=== PATIENT | female | born 1930 | race Caucasian/White ===

== ENCOUNTER 2016-05-09 18:07 | Inpatient (IN) | payer MEDICARE, OTHER ==
[2016-05-09] MEDS ORDERED: NS 0.9% 1000 ML* 1,000 ML IV ONE (20:52)
[2016-05-09 21:45] LABS: Urine Bacteria 1+ (Absent); Urine Bilirubin Negative (Negative); Urine Glucose Negative (Negative); Urine Nitrite Negative (Negative)
--- NOTE | 2016-05-09 21:54 | RAD ---
Indication: Confusion. Single frontal view of the chest performed at 2110 hours was reviewed. Comparison is made with previous exam dated January 15, 2014. No mediastinal shift is noted. Heart is of normal size and configuration. Lung aden appear clear. IMPRESSION: NO ACTIVE CARDIOPULMONARY DISEASE IS NOTED.
[2016-05-09 22:14] LABS: Hematocrit 42 % (35-47); Hemoglobin 13.3 g/dl (12.0-16.0); Mean Corpuscular HGB Conc 32 g/dl (31-36); Mean Corpuscular Hemoglobin 27 pg (27-31); Mean Corpuscular Volume 85 fL (80-97); Mean Platelet Volume 10 um3 (7.4-10.4); Red Blood Count 4.89 10^6/ul (4.0-5.4); Red Cell Distribution Width 15 % (10.5-15); White Blood Count 11.3 10^3/ul (3.5-10.8)
[2016-05-09 22:30] LABS: Albumin 3.4 g/dL (3.2-5.2); BUN/Creatinine Ratio 19.1 (8-20); Calcium 9.2 mg/dL (8.6-10.3); EGFR African American 49.4 (>60); EGFR Non-African American 38.4 (>60); Globulin 3.1 g/dL (2-4); Potassium 4.5 mmol/L (3.5-5.0); Total Bilirubin 1.1 mg/dL (0.2-1.0); Total Protein 6.5 g/dL (6.4-8.9)
[2016-05-09 22:33] LABS: Troponin I 7.27 ng/mL (<0.04)
[2016-05-09] MEDS ORDERED: Aspirin TAB* 325 MG PO ONE (22:36)
--- NOTE | 2016-05-09 22:59 | RAD ---
Indication: Confusion. CT of the brain was performed without IV contrast. Ventricular structures are midline. No midline shift is noted. Central and cortical atrophy is noted. There is no evidence of intracranial mass or hemorrhage. No other high or low density lesions are identified. When compared to previous exam of January 16, 2014 no significant change is noted. Mastoid air cells and paranasal sinuses are otherwise unremarkable. IMPRESSION: No intracranial mass or hemorrhage is noted.
--- NOTE | 2016-05-09 23:11 | ED ---
Edward Zhou Claudia, scribed for Emanuel Matias on 05/09/16 at 2056 . Altered Mental Status - HPI Summary HPI Summary: 85 year old presents to the ED with increased confusion over the last few days. Pt daughter notes that on Saturday she notes that pt was having more confusion than nnml. Today pt left the car after telling her that she would wait in the car for him. Pt went into he store and sat on a stool and was unable to tell her who she was and where she was. Pt daughter notes pt has confusion since CVA 4 years ago but it has worsened in the past few days. Pt daughter notes pt is dehydrated. Pt denies CP, abd pain and fever. Level 5 caveat- AMS - History Of Current Complaint Chief Complaint: EDAltMentalStatus Stated Complaint: POSSIBLE UTI Time Seen by Provider: 05/09/16 20:36 Hx Obtained From: Patient Hx From Patient Unobtainable Due To: Altered Mental Status Timing: Constant, Lasting Days Character: Confusion Associated Signs And Symptoms: Negative: Fever - Allergies/Home Medications Allergies/Adverse Reactions: Allergies Allergy/AdvReac Type Severity Reaction Status Date / Time Bupropion [From Wellbutrin] Allergy Unknown Unknown Verified 01/15/14 19:41 Reaction Details Cholestyramine Allergy Unknown Unknown Verified 01/15/14 19:41 [From Questran] Reaction Details Ticlopidine [From Ticlid] Allergy Rash Verified 01/15/14 19:41 Codeine AdvReac Mild GI Upset Verified 01/15/14 19:41 PMH/Surg Hx/FS Hx/Imm Hx Previously Healthy: Yes Endocrine/Hematology History: Denies: Hx Diabetes Cardiovascular History: Denies: Hx Congestive Heart Failure, Hx Hypertension, Hx Pacemaker/ICD Respiratory History: Denies: Hx Asthma History: Denies: Hx Renal Disease Sensory History: Reports: Hx Contacts or Glasses, Hx Vision Problem - left eye blurry Denies: Hx Cataracts, Hx Deafness, Hx Hearing Aid, Hx Hearing Problem, Other Sensory Impairments Opthamlomology History: Reports: Hx Contacts or Glasses, Hx Vision Problem - left eye blurry Denies: Hx Cataracts, Other Sensory Impairments Psychiatric History: Reports: Hx Anxiety, Hx Depression Denies: Hx Panic Disorder - Cancer History Cancer Type, Location and Year: Family history - Surgical History Surgery Procedure, Year, and Place: CARPAL TUNNEL, APPY, BILAT CORNEAL TRANSPLANTS Hx Anesthesia Reactions: No - Immunization History Date of Tetanus Vaccine: Unk Date of Influenza Vaccine: None Infectious Disease History: No Infectious Disease History: Denies: Hx Clostridium Difficile, Hx Hepatitis, Hx Human Immunodeficiency Virus (HIV), Traveled Outside the [place] in Last 30 Days - Family History Known Family History: Negative: Hypertension, Diabetes - Social History Occupation: Retired Lives: With Family Alcohol Use: None Substance Use Type: Reports: None Smoking Status (MU): Former Smoker Review of Systems - ROS Summary Review of Systems Summary: Level 5 caveat AMS Negative: Fever Eyes: Negative ENT: Negative Cardiovascular: Negative Negative: Chest Pain Respiratory: Negative Gastrointestinal: Negative Negative: Abdominal Pain Genitourinary: Negative Musculoskeletal: Negative Skin: Negative Neurological: Other - confused Psychological: Normal All Other Systems Reviewed And Are Negative: Yes Physical Exam - Summary Physical Exam Summary: Level 5 caveat AMS Triage Information Reviewed: Yes Vital Signs On Initial Exam: Initial Vitals Temp Pulse Resp BP Pulse Ox 96.9 F 101 16 152/96 97 05/09/16 18:10 05/09/16 18:10 05/09/16 18:10 05/09/16 18:10 05/09/16 18:10 Vital Signs Reviewed: Yes Appearance: Positive: Well-Appearing, No Pain Distress Skin: Positive: Warm, Skin Color Reflects Adequate Perfusion, Dry Head/Face: Positive: Normal Head/Face Inspection Eyes: Positive: EOMI, ADOLFO ENT: Positive: Normal ENT inspection Neck: Positive: Supple, Nontender Respiratory/Lung Sounds: Positive: Clear to Auscultation, Breath Sounds Present Cardiovascular: Positive: RRR, Pulses are Symmetrical in both Upper and Lower Extremities Abdomen Description: Positive: Nontender, Soft Musculoskeletal: Positive: Normal, Strength/ROM Intact Neurological: Positive: Other - confused Diagnostics - Vital Signs Vital Signs Temp Pulse Resp BP Pulse Ox 05/09/16 19:20 97.5 F 99 18 133/74 100 05/09/16 18:10 96.9 F 101 16 152/96 97 - Laboratory Result Diagrams: 05/09/16 22:00 05/09/16 22:00 Lab Statement: Any lab studies that have been ordered have been reviewed, and results considered in the medical decision making process. - Radiology CXR Xray Interpretation: No Acute Changes - NO ACTIVE CARDIOPULMONARY DISEASE Radiology Interpretation Completed By: Radiologist - CT BRAIN CT CT Interpretation: No Acute Changes - NO INTRACRANIAL MASS OR HEMMORHAGE IS NOTED CT Interpretation Completed By: Radiologist - EKG 22:06 Cardiac Rate: NL EKG Rhythm: Sinus Rhythm - 89 beats/min EKG Interpretation: with ST T changes Altered Mental Statu Course/Dx - Course Assessment/Plan: AFTER CXR EKG CT BRAIN AND TROPONIN OF 7.0 PT WILL BE ADMITTED TO [facility]. - Diagnoses Discharge Diagnoses: Non-STEMI (non-ST elevated myocardial infarction) - Provider Notifications Discussed Care Of Patient With: DR. GONZALES WILL ADMIT TO [facility]. 23:07 Discharge - Discharge Plan Condition: Stable Disposition: ADMITTED TO [facility] Referrals: Bhavani Barahona MD [Primary Care Provider] - The documentation as recorded by the Edward garcia Claudia accurately reflects the service I personally performed and the decisions made by Florencio velez Emmanuel.
[2016-05-10] MEDS ORDERED: NS 0.9% 1000 ML* 1,000 ML IV SCH (00:30)
[2016-05-10] MEDS ORDERED: Heparin DRIP 25,000 UNITS(*) 25,000 UNITS/500 ML BAG IV SCH (00:30)
[2016-05-10] MEDS ORDERED: Haloperidol INJ IV/IM* 5 MG/ML AMP IV SLOW PU PRN (00:35)
[2016-05-10] MEDS ORDERED: Haloperidol INJ IV/IM* 5 MG/ML AMP ONE (00:41)
[2016-05-10] MEDS ORDERED: Heparin VIAL(*) 5000 UNITS/ML VIAL (FIVE THOUSAND) IV SCH (01:00)
[2016-05-10] MEDS: cefTRIAXone VIAL(*) 1,000 MG in NS 0.9% 50 ML* 50 ML IVPB SCH (02:45)
[2016-05-10] MEDS ORDERED: Dextrose 50% Syringe 50 ML* 25 GM/50 ML SYRINGE IV PUSH PRN (03:12)
--- NOTE | 2016-05-10 05:12 | HP ---
HISTORY AND PHYSICAL: DATE OF ADMISSION: 05/10/16 PRIMARY CARE PHYSICIAN: Dr. Barahona. CHIEF COMPLAINT: Confusion. HISTORY OF PRESENT ILLNESS: The patient is an 85-year-old woman, who was out with her earlier in the day, running errands. Her got out of the car and left his in there while he went into [employer]. However, while he was in there, she got out of the car, went into the store and had no idea where she was. She was quite confused. Her found her, and with the help of the store employees got her back into the car, brought her home. His daughter called the home and found out about this and went home to see the mother. He said she was just completely confused, did not know where she was. They were concerned it was just dehydration because she only drinks black coffee with sugar, not really any water. They brought her into the hospital for further evaluation and the workup showed that she had an elevated troponin. It also appears that she may have urinary tract infection, which is not unusual for the patient. PAST MEDICAL HISTORY: She has a past medical history significant for depression, TIA, hypertension, dyslipidemia, tardive dyskinesia, cerebrovascular accident, peripheral vascular disease, carotid stenosis. PAST SURGICAL HISTORY: Significant for carpal tunnel syndrome. ALLERGIES: BUPROPION, question TICLOPIDINE AND CODEINE; and LORAZEPAM makes her quite anxious. CURRENT MEDICATIONS: 1. Metformin 500 mg daily. 2. Plavix 75 mg daily. 3. Citalopram 20 mg in the evening. 4. Atorvastatin 80 mg in the evening. 5. Aspirin 81 mg daily. FAMILY HISTORY: Reviewed and noncontributory. SOCIAL HISTORY: Quit tobacco 30 years ago. No alcohol or recreational drug use. She is retired. She works for [employer]. Her daughter , Lavonne King, , is her healthcare proxy. REVIEW OF SYSTEMS: Unable to really complete with the patient because of her confusion. PHYSICAL EXAMINATION GENERAL: An elderly woman, lying in bed, in no acute distress. VITAL SIGNS: Temperature 98.5 degrees, heart rate 82 beats per minute, respiratory rate 18 breaths per minute, pulse ox 95%, blood pressure 130/63. HEENT: Normocephalic and atraumatic. Pupils are equal, round, and reactive to light. Moist mucous membranes. NECK: Supple. No JVD, bruits, palpable thyroid or lymphadenopathy. CHEST: Clear to auscultation and percussion bilaterally. CARDIOVASCULAR: S1, S2 appreciated. ABDOMEN: Positive bowel sounds in all 4 quadrants. Soft, nontender and nondistended. EXTREMITIES: No cyanosis or clubbing. +2 peripheral pulses bilaterally. NEUROLOGIC: She is alert and oriented x1. Moves all extremities. SKIN: No rashes or abnormalities. LABORATORY DATA: White count 11.3, hemoglobin 13.3, hematocrit 42, platelets 317. Sodium 136, potassium 4.5, chloride 102, CO2 of 27, BUN 25, creatinine 1.31 , glucose 176. First troponin was 7.27. INR is 0.93. Urinalysis has +1 leukocyte esterase, +2 wbc's, +3 rbc's, squamous epithelial cells are present. Her brain CT was interpreted by Radiology as no intracranial mass or hemorrhages noted. Her chest x-ray was interpreted by Radiology as no active cardiopulmonary disease noted. Her EKG shows normal sinus rhythm at 90 beats per minute, left axis deviation, Q in lead III, left anterior hemiblock, nonspecific ST-T wave changes. ASSESSMENT AND PLAN: 1. Elevated troponin. The patient likely has non-STEMI, but she is completely asymptomatic. It could be the cause of her confusion. We will admit her to telemetry, start heparin drip, continue her other medications and get Cardiology to see her in the morning, and make her n.p.o. 2. Possible positive urinalysis. She could also have a urinary tract infection. We will start her on Rocephin 1 g IV q. day. 3. Altered mental status. Likely secondary to the traumatic non-STEMI or urinary tract infection. I expect this to clear once she starts to feel better from both. 4. Hypertension. Blood pressure is adequately controlled. Continue current regimen. 5. Hyperlipidemia. Continue Lipitor. 6. Diabetes mellitus. She is on metformin, which is new or at least we were unaware of it. I will hold this and place her on fingerstick with sliding scale insulin. 7. FEN. N.p.o., awaiting likely intervention tomorrow. 8. DVT prophylaxis. She is on heparin drip. 9. The patient is a full code. TIME SPENT: Over 80 minutes were spent on this H and P, more than 45 minutes of which were spent in direct [id number] contact with the patient, in evaluation, physical exam, counseling, and coordination of care. CC: Dr. Barahona* [id number]/[facility] #: [id number] KIMBERLEE
[2016-05-10] MEDS: Insulin LISPRO* 1 UNITS UNIT SUBCUT SCH ×4 (05:58→21:33)
[2016-05-10] MEDS: Aspirin EC Low Dose* 81 MG TAB.EC PO SCH (09:22)
[2016-05-10] MEDS: Clopidogrel TAB* 75 MG PO SCH (09:22)
[2016-05-10 11:12] LABS: Troponin I 5.4 ng/mL (<0.04)
--- NOTE | 2016-05-10 11:32 | ECHO ---
Patient: ADA LUNDBER[facility] Rec#: [id number] : 1930 Date: 05/10/2016 Age: 85y Height: 162.56 cm / 64.0 in Weight: 69.85 kg / 153.9 lbs Sex: F BSA: 1.75 Room#: 435 Admit Date#: 05/10/2016 Type: Inpatient Referring: Guero Harrison MD Reading: Ayan Hanna DO Dye Operator: Rukhsana Cox RDCS CC: Bhavani Barahona MD Transthoracic Echocardiogram Indication: NSTEMI BP: 148/102 HR: 74 Rhythm: NSR Findings History: TIA,CVA,PVD,carotid stenosis,HTN, current EKG =NSRvwith nonspecific T wave abn. Technical Comments: The study quality is fair. Completed at 0905. Left Ventricle: The left ventricular chamber size is decreased. Moderate concentric left ventricular hypertrophy is observed.with prominent basal septal knuckle The left ventricle appears hyperdynamic.with near end systolic cavitary obliteration The estimated ejection fraction is greater than 65%. Abnormal left ventricular diastolic function is observed. Left Atrium: The left atrium is mildly dilated. Right Ventricle: The right ventricular cavity size is normal. The right ventricular global systolic function is normal. Right Atrium: The right atrial cavity size is normal. Aortic Valve: The aortic valve is trileaflet. There is no evidence of aortic regurgitation.The aortic valve appears to open adequately Mitral Valve: Mild mitral annular calcification present. The mitral valve leaflets are mildly thickened. Mild mitral leaflet calcification is visualized. There is mild mitral regurgitation. There is no evidence of mitral stenosis. Tricuspid Valve: The tricuspid valve leaflets are normal. There is trace tricuspid regurgitation. Unable to estimate the right ventricular systolic pressure. There is no tricuspid stenosis. Pulmonic Valve: The pulmonic valve appears normal. There is a trace pulmonic regurgitation. There is no pulmonic stenosis. Pericardium: There is no significant pericardial effusion. Aorta: There is no dilatation of the ascending aorta. The aortic arch is not well visualized. There is mild dilatation of the aortic root. Pulmonary Artery: The main pulmonary artery is not well visualized. Venous: The inferior vena cava appears normal in size. There is a greater than 50% respiratory change in the inferior vena cava dimension. Conclusions The left ventricular chamber size is decreased. Moderate concentric left ventricular hypertrophy is observed with prominent basal septal knuckle The left ventricle is hyperdynamic with near end systolic cavitary obliteration There is likely an end-systolic intracavitary and/or LVOT tract significant gradient that is not well appreciated on this study. The left atrium is mildly dilated. The right ventricular cavity size is normal. The right ventricular global systolic function is normal. Unable to estimate the right ventricular systolic pressure. There is no significant pericardial effusion. Compared to prior study from 01/2014, extra-cardiac structures are not well visualized on this study Measurements Name Value Normal Range RVIDd (AP) 2D 2.1 cm (0.9 - 2.6) RVDdMajor (2D) 2.9 cm (2.2 - 4.4) RAd ISD 4CH 4 cm (3.4 - 4.9) RA (A4C)W 2.2 cm (2.9 - 4.6) IVSd (2D) 1.4 cm (0.6 - 1) LVPWd (2D) 1.4 cm (0.6 - 1) LVIDd (2D) 3.8 cm (3.6 - 5.4) LVIDs (2D) 2.5 cm - LV FS (2D) 35 % (25 - 45) Aortic Annulus 2 cm (1.4 - 2.6) Ao root diameter (2D) 3.6 cm (2.1 - 3.5) Ascending Ao 3 cm (2.1 - 3.4) LA dimension (AP) 2D 4.2 cm (2.3 - 3.8) LAd ISD 4CH 4.5 cm (2.9 - 5.3) LA ISD 4CH W 3.6 cm (2.5 - 4.5) Name Value Normal Range LA ESV SP 4CH (A/L) 35 ml - LA ESV SP 2CH (A/L) 41 ml - LA ESV BP (A/L) 39 ml - LA ESV BP (A/L) index 22.27 ml/m2 - LA ESV SP 4CH (MOD) 33 ml - LA ESV SP 2CH (MOD) 39 ml - Name Value Normal Range MV E-wave Vmax 1.1 m/sec - MV deceleration time 264 msec - MV A-wave Vmax 1.3 m/sec - MV E:A ratio 0.85 ratio - LV septal e' Vmax 0.07 m/sec - LV lateral e' Vmax 0.04 m/sec - LV E:e' septal ratio 15.71 ratio - LV E:e' lateral ratio 27.5 ratio - Name Value Normal Range AV Vmax 1.4 m/sec - AV VTI 40.7 cm - AV peak gradient 8.04 mmHg - AV mean gradient 5.36 mmHg - LVOT Vmax 0.8 m/sec - LVOT VTI 21.5 cm - LVOT peak gradient 2.31 mmHg - LVOT mean gradient 1.36 mmHg - Name Value Normal Range TR Vmax 2.4 m/sec - TR peak gradient 23 mmHg - RAP 3 mmHg - RVSP 26 mmHg - IVC diameter 1.3 cm - Name Value Normal Range PV Vmax 0.6 m/sec - PV peak gradient 1.39 mmHg -
[2016-05-10] MEDS: NS 0.9% 1000 ML* 1,000 ML IV SCH ×2 (14:00→16:04)
--- NOTE | 2016-05-10 14:10 | CONSULT ---
Subjective Date of Service: 05/10/16 Interval History: Provider: Guero Harrison MD/Hospitalist service DATE OF ADMISSION: 05/10/16 PRIMARY CARE PHYSICIAN: Dr. Barahona. CHIEF COMPLAINT: Confusion. Reason for consult: Elevated troponin HISTORY OF PRESENT ILLNESS: The patient is an 85-year-old woman, who was out with her earlier in the day, running errands. Her got out of the car and left his in there while he went into [employer]. However, while he was in there, she got out of the car, went into the store and had no idea where she was. She was very confused. Her found her, and with the help of the store employees got her back into the car, brought her home. She was ultimately admitted to [facility] with dehydration and UTI. Her troponin was elevated as high as 8 with a creatinine of 1.3. EKG showed NSR with non- specific ST segment flattening. TTE showed moderate LVH with very hyperdynamic LVEF with near end systolic cavitary obliteration and no segmental wall motion abnormalities. There was no chest pain, dyspnea, palpitations or syncope. PAST MEDICAL HISTORY: She has a past medical history significant for depression, TIA, hypertension, dyslipidemia, tardive dyskinesia, memory christina cerebrovascular accident, peripheral vascular disease, carotid stenosis. PAST SURGICAL HISTORY: Significant for carpal tunnel syndrome. ALLERGIES: BUPROPION, question TICLOPIDINE AND CODEINE; and LORAZEPAM makes her quite anxious. FAMILY HISTORY: Reviewed and noncontributory. SOCIAL HISTORY: Quit tobacco 30 years ago. No alcohol or recreational drug use. She is retired. She works for [employer]. Her daughter, Lavonne King, , is her healthcare proxy. Medications Active Medications: Aspirin (Aspirin Ec Low Dose*) 81 mg PO DAILY [facility] Last Admin: 05/10/16 09:22 Dose: 81 mg Atorvastatin Calcium (Lipitor*) 80 mg PO QPM JOSE Citalopram Hydrobromide (Celexa Tab*) 20 mg PO QPM JOSE Clopidogrel Bisulfate (Plavix Tab*) 75 mg PO DAILY [facility] Last Admin: 05/10/16 09:22 Dose: 75 mg Dextrose (D50w Syringe 50 Ml*) 12.5 gm IV PUSH .FOR FS < 60 - SS PRN PRN Reason: FS < 60 Haloperidol Lactate (Haldol Inj Iv/Im*) 1 mg IV SLOW PU Q6H PRN PRN Reason: AGITATION Last Admin: 05/10/16 00:43 Dose: 1 mg Ceftriaxone Sodium 1,000 mg/ (Sodium Chloride) 50 mls @ 200 mls/hr IVPB Q24H [facility] Last Admin: 05/10/16 02:45 Dose: 200 mls/hr Sodium Chloride (Ns 0.9% 1000 Ml*) 1,000 mls @ 100 mls/hr IV PER RATE [facility] Last Admin: 05/10/16 14:00 Dose: 100 mls/hr Insulin Human Lispro (Humalog*) 0 units SUBCUT Q6HR JOSE PRN Reason: Protocol Last Admin: 05/10/16 12:25 Dose: Not Given Home Medications: Atorvastatin* [Lipitor*] 80 mg PO QPM 03/07/13 [History Confirmed 05/10/16] Citalopram TAB* [Celexa TAB*] 20 mg PO QPM 03/07/13 [History Confirmed 05/10/16] Aspirin EC Low Dose* [Ecotrin EC Low Dose*] 81 mg PO DAILY 05/10/16 [History Confirmed 05/10/16] Clopidogrel TAB* [Plavix TAB*] 75 mg PO DAILY 05/10/16 [History Confirmed ] metFORMIN* [Glucophage*] 500 mg PO DAILY 05/10/16 [History Confirmed 05/10/16] Review of Systems - Measurements Intake and Output: Intake and Output Last 24 Hours 05/08/16 05/09/16 05/10/16 05/11/16 06:59 06:59 06:59 06:59 Intake Total 77 244 Balance 77 244 Weight 148 lb 9.465 oz Intake: IV Fluids 77 244 ABX - CEFTRIAXONE 60 NS (0.9%) 17 1 hep 243 Oral 0 - Review of Systems Constitutional Symptoms: Positive: Weakness Negative: Weight Gain, Weight Loss, Fever, Night Sweats Dermatology: Negative: Rash, Skin Lesions HEENT: Negative: Change in Hearing, Vertigo Eyes: Negative: Change in Vision, Double Vision Thyroid: Negative: Thyroid Nodule, Cold Intolerance, Heat Intolerance, Constipation, Palpitations, Primary Hypothyroidism, Primary Hyperthyroidism, Weight Loss, Weight Gain Pulmonary: Negative: Cough, Sputum, Hemoptysis, Wheezing, Respiratory Distress, Shortness of Breath, COPD Cardiology: Negative: Chest Pain, Shortness of Breath, Palpitations, Swelling of Ankles, Peripheral Vascular Dis, Edema, Faintness, Syncope, Claudication, Paroxysmal Nocturnal Dyspnea, Orthopnea Gastroenterology: Negative: Abdominal Pain, Nausea, Vomiting, Anorexia, Indigestion, Heartburn , Constipation, Diarrhea Genital - Urinary: Negative: Hematuria, Polyuria, Nocturia Musculoskeletal: Negative: Joint Pain, Joint Stiffness, Arthritis, Osteoporosis, Low Back Pain , Sciatica Endocrinology: Negative: Obesity, Diabetes, Hyperglycemia, Hypoglycemia, Diabetic Foot Ulcers, Polydipsia, Polyuria Hematologic/Lymphatic: Positive: Use of Antiplatelet Drugs Negative: Anemia, Easy Brusing, Hx Leukemia, Use of Anticoagulant Neurology: Positive: Change in Memory, Unexplained Weakness, Hx of Stroke\TIA Negative: Diplopia, Dizziness, Change in Balancing, Change in Coordination, Change in Speech, Change in Sphincter Function, Change in Walking, Numbness\ Paresthesiae, Hx Seizures Psychiatry: Negative: Depressed Mood, Adhedonia, Weight Change, Tearfulness, Unusual Anxiety, Suicidal Ideation, Hypomania, Eating Disorders Allergic/Immunologic: Negative: Hx HIV, Immunocompromise, Swollen Glands Lymph Nodes Review of Systems Statement: All other review of systems negative, unless stated above. Objective Vital Signs: Temp Pulse Resp BP Pulse Ox 97.0 F 92 16 168/99 98 05/10/16 07:46 05/10/16 07:46 05/10/16 07:53 05/10/16 07:46 05/10/16 07:46 Appearance: nad, elderly, frail, pleasant Ears/Nose/Mouth/Throat: Clear Oropharnyx, Mucous Membranes Moist Neck: NL Appearance and Movements; NL JVP Respiratory: Symmetrical Chest Expansion and Respiratory Effort, Clear to Auscultation Cardiovascular: NL Sounds; No Murmurs; No JVD, RRR, No Edema Abdominal: NL Sounds; No Tenderness; No Distention Extremities: No Edema Skin: No Rash or Ulcers Neurological: Alert and Oriented x 3 Laboratory Results: 05/09/16 22:00 05/09/16 22:00 INR (Anticoag Therapy) 0.93 (0.89-1.11) 05/09/16 22:00 APTT > 212.0 seconds (26.0-36.3) H* 05/10/16 10:37 Total Bilirubin 1.10 mg/dL (0.2-1.0) H 05/09/16 22:00 AST 35 U/L (13-39) 05/09/16 22:00 ALT 11 U/L (7-52) 05/09/16 22:00 Alkaline Phosphatase 89 U/L (34-104) 05/09/16 22:00 Total Protein 6.5 g/dL (6.4-8.9) 05/09/16 22:00 Albumin 3.4 g/dL (3.2-5.2) 05/09/16 22:00 Globulin 3.1 g/dL (2-4) 05/09/16 22:00 Albumin/Globulin Ratio 1.1 (1-3) 05/09/16 22:00 05/09/16 05/10/16 05/10/16 22:00 01:30 04:20 Troponin I 7.27 H* 8.82 H* 8.23 H* 05/10/16 10:37 Troponin I 5.40 H* Assessment/Plan I had a long discussion with patient and her daughter Lavonne about troponin elevation and its significance. It is likely demand related myocyte injury from LVH, very hyperdynamic LVEF in the setting of UTI and dehydration. The presence of fixed stable underlying obstructive epicardial CAD cannot be excluded and we discussed this. The confusion has resolved with IV hydration and antibiotics. - Continue aspirin and plavix ([employer] medications) - Continue intensive dose statin - Stop heparin gtt - Give IV hydration and needs beta-samantha to reduce hyperdynamic physiology, start metoprolol 25 mg PO BID (ordered) - We discussed possible stress test as an outpatient to further risk stratify and the risks and benefits of this (they appropriately would like to avoid invasive treatment) and I think in this situation balancing risks/benefits she would do just as well or possibly better with medical treatment. They want to follow up with Dr. Barahona regarding this. Thank you for allowing me to participate in the cardiovascular care of this patient. Please do not hesitate to contact me with questions or concerns.
[2016-05-10] MEDS ORDERED: Haloperidol INJ IV/IM* 5 MG/ML AMP IM PRN (14:59)
[2016-05-10] MEDS ORDERED: Haloperidol TAB* 1 MG PO PRN (14:59)
[2016-05-10] MEDS: Acetaminophen TAB* 325 MG PO PRN (15:27)
[2016-05-10] MEDS: Metoprolol Tartrate TAB* 25 MG PO SCH ×2 (15:27→21:34)
--- NOTE | 2016-05-10 15:46 | PN ---
Subjective Date of Service: 05/10/16 Interval History: HOSPITALIST PROGRESS NOTE Patient seen and examined at bedside. Her only complaint now is headache, otherwise feels much improved. Denies CP or dyspnea. Family History: Unchanged from Admission Social History: Unchanged from Admission Past Medical History: Unchanged from Admission Objective Active Medications: Acetaminophen (Tylenol Tab*) 650 mg PO Q6H PRN PRN Reason: pain/fever Last Admin: 05/10/16 15:27 Dose: 650 mg Aspirin (Aspirin Ec Low Dose*) 81 mg PO DAILY [facility] Last Admin: 05/10/16 09:22 Dose: 81 mg Atorvastatin Calcium (Lipitor*) 80 mg PO QPM JOSE Citalopram Hydrobromide (Celexa Tab*) 20 mg PO QPM [facility] Clopidogrel Bisulfate (Plavix Tab*) 75 mg PO DAILY [facility] Last Admin: 05/10/16 09:22 Dose: 75 mg Dextrose (D50w Syringe 50 Ml*) 12.5 gm IV PUSH .FOR FS < 60 - SS PRN PRN Reason: FS < 60 Haloperidol (Haldol Tab*) 1 mg PO Q6H PRN PRN Reason: AGITATION Haloperidol Lactate (Haldol Inj Iv/Im*) 1 mg IM Q6H PRN PRN Reason: Severe Agitation Ceftriaxone Sodium 1,000 mg/ (Sodium Chloride) 50 mls @ 200 mls/hr IVPB Q24H [facility] Last Admin: 05/10/16 02:45 Dose: 200 mls/hr Sodium Chloride (Ns 0.9% 1000 Ml*) 1,000 mls @ 100 mls/hr IV PER RATE [facility] Last Admin: 05/10/16 14:00 Dose: 100 mls/hr Insulin Human Lispro (Humalog*) 0 units SUBCUT Q6HR [facility] PRN Reason: Protocol Last Admin: 05/10/16 12:25 Dose: Not Given Metoprolol Tartrate (Lopressor Tab*) 25 mg PO BID [facility] Last Admin: 05/10/16 15:27 Dose: 25 mg Vital Signs 05/10/16 05/10/16 07:46 07:53 Temperature 97.0 F Pulse Rate 92 Respiratory 16 16 Rate Blood Pressure 168/99 (mmHg) O2 Sat by Pulse 98 Oximetry Oxygen Devices in Use Now: Nasal Cannula Appearance: Pleasant elderly lady sitting up in bed in NAD. Eyes: No Scleral Icterus Ears/Nose/Mouth/Throat: Mucous Membranes Moist Neck: Trachea Midline Respiratory: Symmetrical Chest Expansion and Respiratory Effort, Clear to Auscultation Cardiovascular: RRR - Normal S1 and S2 Abdominal: NL Sounds; No Tenderness; No Distention Extremities: No Edema Neurological: Alert and Oriented x 3, NL Muscle Strength and Tone Lines/Tubes/Other Access: Clean, Dry and Intact Peripheral IV Nutrition: Taking PO's Result Diagrams: 05/09/16 22:00 05/09/16 22:00 Assess/Plan/Problems-Billing Assessment: Mrs. Neumann is an 85yo F with PMH of depression, TIA/CVA, carotid stenosis, PVD , HTN, hyperlipidemia, who presented to ED with confusion, found to have an UTI and elevated troponin. - Patient Problems (1) UTI (urinary tract infection) Comment: - Urinalysis was abnormal, awaiting urine culture. - Continue Ceftriaxone. (2) Elevated troponin Comment: - Echo showed decreased LV chamber with moderate concentric LVH. - Cardiology consult appreciated - troponin elevation likely secondary to increased demand and very hyperdynamin LV (suggesting dehydration). - Recommended continuation of Aspirin, Plavix, Atorvastatin and add Metoprolol. (3) Dehydration Comment: - Continue IVF. (4) Confusion Comment: - Suspect patient likely has baseline mild dementia and was more confused due to UTI. - Supportive care. (5) Headache Comment: - Likely secondary to caffeine withdrawal. - Will change diet to allow caffeine. (6) DVT prophylaxis Comment: - SQ heparin. (7) Full code status Status and Disposition: Inpatient.
[2016-05-10] MEDS ORDERED: Insulin LISPRO* 1 UNITS UNIT SUBCUT ONE (17:40)
[2016-05-10] MEDS ORDERED: Atorvastatin* 80 MG TAB PO SCH (18:00)
[2016-05-10] MEDS ORDERED: Citalopram TAB* 20 MG PO SCH (18:00)
[2016-05-10 19:33] LABS: Magnesium 1.7 mg/dL (1.9-2.7)
[2016-05-10] MEDS: Heparin VIAL(*) 5000 UNITS/ML VIAL (FIVE THOUSAND) SUBCUT SCH (21:35)
[2016-05-11] MEDS: cefTRIAXone VIAL(*) 1,000 MG in NS 0.9% 50 ML* 50 ML IVPB SCH (02:26)
[2016-05-11] MEDS: Heparin VIAL(*) 5000 UNITS/ML VIAL (FIVE THOUSAND) SUBCUT SCH ×2 (05:36→13:05)
[2016-05-11] MEDS: NS 0.9% 1000 ML* 1,000 ML IV SCH (05:38)
[2016-05-11] MEDS: Insulin LISPRO* 1 UNITS UNIT SUBCUT SCH ×2 (09:33→13:06)
[2016-05-11] MEDS: Clopidogrel TAB* 75 MG PO SCH (09:36)
[2016-05-11] MEDS: Aspirin EC Low Dose* 81 MG TAB.EC PO SCH (09:36)
[2016-05-11] MEDS: Metoprolol Tartrate TAB* 25 MG PO SCH (09:36)
[2016-05-11] MEDS: Acetaminophen TAB* 325 MG PO PRN (09:46)
--- NOTE | 2016-05-11 09:59 | RAD ---
Indication: Non-ST elevation TN. Elevated d-dimer. Assess for pulmonary embolism. Comparison: May 09, 2016 chest radiograph. January 17, 2014 CT. Technique: Following administration of 12.44 mCi xenon-133 by inhalation anterior and posterior ventilation images were obtained. Following the administration of 6.100 mCi of Tc-99m macroaggregated albumin, perfusion images were obtained in multiple projections. Report: The ventilation pattern is uniform with no evidence of air trapping. Accounting for LEFT lung volume loss secondary to cardiomegaly, hiatal hernia, and tortuous descending thoracic aorta based on correlation with January 17, 2014 CT the pulmonary perfusion pattern is unremarkable. Negative for segmental or subsegmental perfusion defects. IMPRESSION: No evidence for pulmonary embolism.
[2016-05-11] MEDS ORDERED: Magnesium Oxide TAB* 400 MG PO ONE (13:36)
[2016-05-11 15:45] VITALS: BP 183/89
--- NOTE | 2016-05-12 01:01 | DS ---
CC: Dr. Barahona DISCHARGE SUMMARY: DATE OF ADMISSION: 05/10/16 DATE OF DISCHARGE: 05/11/16 PRIMARY CARE PROVIDER: Dr. Barahona. DISCHARGE DIAGNOSES: 1. Escherichia coli urinary tract infection, present on admission, not [place] catheter related. 2. Troponin elevation, likely secondary to increased demand and a hyperdynamic left ventricle. 3. Dehydration. 4. Delirium. 5. Hypomagnesemia. SECONDARY DIAGNOSES: 1. Depression. 2. Transient ischemic attack/cerebrovascular accident. 3. Carotid stenosis. 4. Peripheral vascular disease. 5. Hypertension. 6. Hyperlipidemia. 7. Chronic kidney disease, stage 3. 8. Probable dementia. MEDICATION LIST: 1. Metformin 500 mg p.o. daily. 2. Clopidogrel 75 mg p.o. daily. 3. Citalopram 20 mg p.o. daily. 4. Atorvastatin 80 mg p.o. daily. 5. Aspirin 81 mg p.o. daily. New Medications: 1. Cefuroxime 250 mg p.o. b.i.d. for 5 more days. 2. Metoprolol tartrate 25 mg p.o. b.i.d. 3. Magnesium oxide 400 mg p.o. daily. HOSPITAL COURSE: Mrs. Neumann is an 85-year-old lady with the past medical history as stated above that was brought into the emergency room due to confusion. For more details about her presentation, I referred to her history and physical by Dr. Guero Harrison. In the emergency room, the patient was found to have an abnormal urinalysis suggestive of urinary tract infection and she also had an elevated troponin that peaked at 8.8. She had no complaints of chest pain or shortness of breath. She was admitted for further evaluation and workup. Regarding her urinary tract infection, her urine culture grew E. coli 75,000 to 100,000 colonies, multi-sensitive. She was initially treated with ceftriaxone and this was later switched to Ceftin on discharge. Regarding her troponin, the patient had a transthoracic echocardiogram that showed that the last ventricular chamber size is decreased. There is moderate concentric LVH with prominent basal septal knuckle. The left ventricle is hyperdynamic with near and systolic cavitary obliteration. There is likely a main systolic intracavitary and/or LVOT tract significant gradient that was not well appreciated on this study. Unable to estimate the right ventricular systolic pressure. She also had a V/Q scan that showed no evidence for pulmonary embolism. She was seen in consultation by Cardiology (Dr. Ayan Hanna). He had a long discussion with the patient and her daughter at bedside about troponin elevation and what it means. He felt this was likely a demand related myocyte injury from LVH, very hyperdynamic LV function in the setting of UTI and dehydration. The presence of fixed stable underlying obstructive epicardial coronary artery disease cannot be excluded. His recommendation was to continue aspirin, Plavix, statin, start beta-blockers to reduce hyperdynamic physiology. They talked about a possible stress test as an outpatient to further risk stratify and the risks and benefits of it. At this point, they would like to avoid any invasive treatment and she would do just as well or possibly better with medical treatment only. This can be further addressed when the patient follows with Dr. Barahona as outpatient. The patient was quite confused on admission and the impression is that she likely has some degree of dementia. Her daughter describes that for a while the patient has not slept at night and she just wanders through the home. She will spend a night eating bread and butter and picking on different devices around the house. She described one episode that when they woke up, the patient had removed the TV and VCR cable, then put them on the floor on the living room. Her states that sometimes he will wake up when she returns to bed and he does not know what she was doing. They also described some progressive memory issues. I did not perform a mini-mental status at this time as the patient had an active infection, but I believe this will be the next step as outpatient when she follows up with Dr. Barahona. We talked about her safety at home as I am concerned she may get out of the home during the night or have an accident with the stove or other risks. Her family is in agreement with it and they are planning to hire an aide to be with her during the night, so her can rest peacefully without being concerned with what the patient is doing. She already receives aide services during the day and we also made a referral for visiting nurses. I believe the patient was delirious secondary to the urinary tract infection on top of her dementia. She did require some Haldol while in the hospital, but now her mental status appears to be back to her baseline. The patient is medically stable for discharge at this time. She will follow up with Dr. Barahona in the near future. PHYSICAL EXAMINATION: Vital Signs: Temperature 97.4, heart rate is 56, respiratory rate is 18, oxygen saturation 92% on room air, blood pressure is 161 /88. General: The patient is an elderly lady, sitting up in bed, in no acute distress. CVS: Normal S1, S2. Regular rate and rhythm. Chest: Breath sounds present bilaterally with no added sounds. Abdomen: Soft, nontender, nondistended. Bowel sounds are present. Extremities: No edema. Neuro: She is alert, awake, and oriented x3. Able to move all 4 extremities. DIET: Heart healthy diet. ACTIVITY: As tolerated. DISPOSITION: To home. STATUS WHILE IN THE HOSPITAL: Observation. If you need any more information, please feel free to call me at [phone], or please obtain the full medical records. TIME SPENT: Approximately 45 minutes was spent to complete this discharge. [id number]/CPS #: [id number] KIMBERLEE
== END 2016-05-11 16:00 | disposition home or self-care (01) | DRG 690 ==
LOC: ED 18:07 → ICU 05-10 00:16 → MEDTELE 05-10 07:38
PROVIDERS: ADMIT Internal Medicine; ATTEND Internal Medicine
DX: N39.0 Urinary tract infection, site not specified (principal); E83.42 Hypomagnesemia; N18.3 Chronic kidney disease, stage 3 (moderate); F03.90 Unspecified dementia, unspecified severity, without behavioral disturbance, psychotic disturbance, mood disturbance, and anxiety; B96.20 Unspecified Escherichia coli [E. coli] as the cause of diseases classified elsewhere; R74.8 Abnormal levels of other serum enzymes; E86.0 Dehydration; R41.0 Disorientation, unspecified; F32.9 Major depressive disorder, single episode, unspecified; I65.29 Occlusion and stenosis of unspecified carotid artery; I12.9 Hypertensive chronic kidney disease with stage 1 through stage 4 chronic kidney disease, or unspecified chronic kidney disease; E78.5 Hyperlipidemia, unspecified; I73.9 Peripheral vascular disease, unspecified; Z86.73 Personal history of transient ischemic attack (TIA), and cerebral infarction without residual deficits; Z88.6 Allergy status to analgesic agent; Z88.5 Allergy status to narcotic agent; Z88.8 Allergy status to other drugs, medicaments and biological substances; Z79.82 Long term (current) use of aspirin; Z79.02 Long term (current) use of antithrombotics/antiplatelets; Z79.899 Other long term (current) drug therapy; Z87.891 Personal history of nicotine dependence
CPT/HCPCS: 36415; 70450; 71010; 78582; 80053; 81003; 81015; 83735; 84484; 85025; 85379; 85610; 85730; 87077; 87086; 87186; 87641; 93005; 93306; A9270-GY; A9540; A9558; J0696; J1630; J1644

== ENCOUNTER 2016-07-08 20:19 | Emergency (ER) | payer MEDICARE, OTHER ==
[2016-07-08 21:28] LABS: Hematocrit 37 % (35-47); Hemoglobin 11.9 g/dl (12.0-16.0); Mean Corpuscular HGB Conc 33 g/dl (31-36); Mean Corpuscular Hemoglobin 28 pg (27-31); Mean Corpuscular Volume 86 fL (80-97); Mean Platelet Volume 10 um3 (7.4-10.4); Red Blood Count 4.26 10^6/ul (4.0-5.4); Red Cell Distribution Width 15 % (10.5-15); White Blood Count 9.4 10^3/ul (3.5-10.8)
[2016-07-08 21:43] LABS: Albumin 3.5 g/dL (3.2-5.2); BUN/Creatinine Ratio 25.2 (8-20); Calcium 9.1 mg/dL (8.6-10.3); EGFR African American 62.2 (>60); EGFR Non-African American 48.4 (>60); Potassium 3.9 mmol/L (3.5-5.0); Total Bilirubin 0.6 mg/dL (0.2-1.0); Total Protein 6.5 g/dL (6.4-8.9)
[2016-07-08] MEDS ORDERED: Furosemide TAB* 40 MG PO ONE (22:34)
[2016-07-08 23:09] VITALS: BP 150/87
--- NOTE | 2016-07-10 08:30 | ED ---
ILemuel,Rosina, scribed for Andres Perry MD on 07/08/16 at 2233 . Lower Extremity - HPI Summary HPI Summary: This 86 y/o female presents to ED for persistent BLE swelling since 10 days ago. Pt was last seen by doctor on 06/26/2016 and was prescribed hydrochlorothiazide. Negative SOB. Pt has not been diagnosed with dementia, but daughter also reports increased agitation and aggression. Daughter decided to bring pt in when leg pain became worse with palpation and walking. PMHx includes mood disorder, HTN, HLD, DM, migraine, and CVA in 2013. Pt is currently on indapamide, depakote, plavix, and metformin. Pt wears leg compressing socks that goes up to her knees. Primary care involves Dr. Barahona. - History of Current Complaint Chief Complaint: EDExtremityLower Stated Complaint: SWOLLEN LEGS Time Seen by Provider: 07/08/16 20:40 Hx Obtained From: Patient, Family/E/M Engineer - daughter present at bedside, Medical Records Mechanism Of Injury: Unknown Pain Intensity: 0 Pain Scale Used: 0-10 Numeric Timing: Constant Location: Is Discrete @ - BLE Associated Signs And Symptoms: Positive: Swelling. Negative: Fever, Weakness Aggravating Factor(s): Nothing Alleviating Factor(s): Nothing - Allergies/Home Medications Allergies/Adverse Reactions: Allergies Allergy/AdvReac Type Severity Reaction Status Date / Time Bupropion [From Wellbutrin] Allergy Unknown Unknown Verified 07/08/16 20:56 Reaction Details Cholestyramine Allergy Unknown Unknown Verified 07/08/16 20:56 [From Questran] Reaction Details Lorazepam Allergy Agitation Verified 07/08/16 20:56 Ticlopidine [From Ticlid] Allergy Rash Verified 07/08/16 20:56 Codeine AdvReac Mild GI Upset Verified 07/08/16 20:56 PMH/Surg Hx/FS Hx/Imm Hx Endocrine/Hematology History: Reports: Hx Diabetes Cardiovascular History: Reports: Hx Hypercholesterolemia Denies: Hx Congestive Heart Failure, Hx Hypertension, Hx Pacemaker/ICD, Hx Peripheral Vascular Disease Respiratory History: Denies: Hx Asthma History: Denies: Hx Renal Disease Musculoskeletal History: Denies: Hx Arthritis, Hx Osteoporosis Sensory History: Reports: Hx Contacts or Glasses, Hx Vision Problem - left eye blurry Denies: Hx Cataracts, Hx Deafness, Hx Hearing Aid, Hx Hearing Problem, Other Sensory Impairments Opthamlomology History: Reports: Hx Contacts or Glasses, Hx Vision Problem - left eye blurry Denies: Hx Cataracts, Other Sensory Impairments Neurological History: Reports: Hx Transient Ischemic Attacks (TIA) Denies: Hx Seizures Psychiatric History: Reports: Hx Anxiety, Hx Depression Denies: Hx Panic Disorder - Cancer History Cancer Type, Location and Year: Family history - Surgical History Surgery Procedure, Year, and Place: CARPAL TUNNEL, APPY, BILAT CORNEAL TRANSPLANTS Hx Anesthesia Reactions: No - Immunization History Date of Tetanus Vaccine: Unk Date of Influenza Vaccine: None Infectious Disease History: Yes Infectious Disease History: Denies: Hx Clostridium Difficile, Hx Hepatitis, Hx Human Immunodeficiency Virus (HIV), Traveled Outside the [place] in Last 30 Days - Family History Known Family History: Negative: Hypertension, Diabetes - Social History Alcohol Use: None Substance Use Type: Reports: None Smoking Status (MU): Former Smoker Amount Used/How Often: 1ppd Review of Systems Negative: Fever, Chills Negative: Erythema Negative: Sore Throat Negative: Chest Pain Negative: Shortness Of Breath Negative: Abdominal Pain, Vomiting, Nausea Negative: dysuria Positive: Edema - BLE Negative: Numbness All Other Systems Reviewed And Are Negative: Yes Physical Exam - Summary Physical Exam Summary: Constitutional: Well-developed, Well-nourished, Alert. (-) Distressed Skin: Warm, Dry HENT: Eyes: Conjunctiva normal Neck: Musculoskeletal ROM normal neck. (-) JVD, (-) Stridor, (-) Tracheal deviation Cardio: Rhythm regular, rate normal, Heart sounds normal; Intact distal pulses; The pedal pulses are 2+ and symmetric. Radial pulses are 2+ and symmetric. (-) Murmur Pulmonary/Chest wall: Effort normal. (-) Respiratory distress, (-) Wheezes, (-) Rales Abd: Soft. (-) Tenderness, (-) Distension, (-) Guarding, (-) Rebound Musculoskeletal: (+) TRACE Edema Lymph: (-) Cervical adenopathy Neuro: Alert, Oriented x3, Strength normal, Cranial nerves II-XII are grossly intact. (-) Dysmetria, (-) Nystagmus, (-) Ataxia by finger to nose testing, (-) Sensory deficit. Psych: Mood and affect Normal Triage Information Reviewed: Yes Vital Signs On Initial Exam: Initial Vitals Temp Pulse Resp BP Pulse Ox 98.1 F 99 20 126/63 95 07/08/16 20:28 07/08/16 20:28 07/08/16 20:28 07/08/16 20:28 07/08/16 20:28 Vital Signs Reviewed: Yes Diagnostics - Vital Signs Vital Signs Temp Pulse Resp BP Pulse Ox 07/08/16 20:50 98.1 F 99 20 126/63 95 07/08/16 20:28 98.1 F 99 20 126/63 95 - Laboratory Lab Results: Lab Results 07/08/16 07/08/16 07/08/16 Range/Units 21:20 21:20 21:20 WBC 9.4 (3.5-10.8) 10^3/ul RBC 4.26 (4.0-5.4) 10^6/ul Hgb 11.9 L (12.0-16.0) g/dl Hct 37 (35-47) % MCV 86 (80-97) fL MCH 28 (27-31) pg MCHC 33 (31-36) g/dl RDW 15 (10.5-15) % Plt Count 230 (150-450) 10^3/ul MPV 10 (7.4-10.4) um3 Neut % (Auto) 66.9 (38-83) % Lymph % (Auto) 20.4 L (25-47) % [place] % (Auto) 7.9 (1-9) % Eos % (Auto) 3.3 (0-6) % Baso % (Auto) 1.5 (0-2) % Absolute Neuts (auto) 6.3 (1.5-7.7) 10^3/ul Absolute Lymphs (auto) 1.9 (1.0-4.8) 10^3/ul Absolute Monos (auto) 0.7 (0-0.8) 10^3/ul Absolute Eos (auto) 0.3 (0-0.6) 10^3/ul Absolute Basos (auto) 0.1 (0-0.2) 10^3/ul Absolute Nucleated RBC 0 10^3/ul Nucleated RBC % 0 Sodium 138 (133-145) mmol/L Potassium 3.9 (3.5-5.0) mmol/L Chloride 103 (101-111) mmol/L Carbon Dioxide 29 (22-32) mmol/L Anion Gap 6 (2-11) mmol/L BUN 27 H (6-24) mg/dL Creatinine 1.07 H (0.51-0.95) mg/dL Est GFR ( Amer) 62.2 (>60) Est GFR (Non-Af Amer) 48.4 (>60) BUN/Creatinine Ratio 25.2 H (8-20) Glucose 149 H (70-100) mg/dL Calcium 9.1 (8.6-10.3) mg/dL Total Bilirubin 0.60 (0.2-1.0) mg/dL AST 20 (13-39) U/L ALT 13 (7-52) U/L Alkaline Phosphatase 71 (34-104) U/L B-Natriuretic Peptide 49 ( - 100) pg/mL Total Protein 6.5 (6.4-8.9) g/dL Albumin 3.5 (3.2-5.2) g/dL Globulin 3.0 (2-4) g/dL Albumin/Globulin Ratio 1.2 (1-3) Result Diagrams: 07/08/16 21:20 07/08/16 21:20 Lab Statement: Any lab studies that have been ordered have been reviewed, and results considered in the medical decision making process. Lower Extremity Course/Dx - Course Assessment/Plan: This 86 y/o female presents to ED alongside her daughter with persistent BLE edema. Pt was recently seen by her primary and was prescribed hydrochlorothiazide on 06/26/2016. She is currently on indapamide. PMHx includes DM, HTN, HLD, and CVA in 2013. Bloodwork is wnl. Pt is prescription for LASIX prescription, leg compression stocking, f/u with primary care provider. - Diagnoses Provider Diagnoses: Peripheral edema Discharge - Discharge Plan Condition: Stable Disposition: HOME Prescriptions: Furosemide TAB* [Lasix TAB*] 20 mg PO DAILY #7 tab Patient Education Materials: Furosemide (By mouth), Leg Edema (ED) Referrals: Bhavani Barahona MD [Primary Care Provider] - 2 Days Additional Instructions: PLEASE BE SURE TO HAVE YOUR REPEAT BLOOD WORK WITH DR. BARAHONA. RETURN TO THE EMERGENCY DEPARTMENT FOR CHANGING OR WORSENING SYMPTOMS The documentation as recorded by the Lemuel garcia Soohyun accurately reflects the service I personally performed and the decisions made by me, Andres Perry MD.
== END 2016-07-08 23:08 | disposition home or self-care (01) ==
LOC: ED 20:19
DX: R60.0 Localized edema (principal); Z87.891 Personal history of nicotine dependence
CPT/HCPCS: 36415; 80053; 83880; 85025; 99282; A9270-GY

== ENCOUNTER 2018-04-26 16:39 | Inpatient (IN) | payer MEDICARE, OTHER ==
[2018-04-26] MEDS ORDERED: NS 0.9% 1000 ML** 1,000 ML IV ONE (16:42)
--- NOTE | 2018-04-26 16:50 | ED ---
Neurological HPI - HPI Summary HPI Summary: This patient is an 87 year old F brought in by ambulance to [facility] with a chief complaint of sudden onset left sided facial droop since 15:20. The patient rates the pain 0/10 in severity. Symptoms aggravated by nothing. Symptoms alleviated by nothing. Patient reports left sided weakness, confusion, and cognitive difficulty. Patient denies PAPPAS, dizziness, or nausea. Patient has hx dementia but her family notes she has more confused than usual since the onset of symptoms. - History of Current Complaint Stated Complaint: POSS STROKE Hx Obtained From: EMS Onset/Duration: Sudden Onset, Started hours ago - 1.5 hours ago, Still Present Timing: Constant Onset Severity: Moderate Current Severity: Moderate Seizure Severity: Moderate Neurological Deficit Location: Facial - left side, LUE, RLE, LLE Character: Weak - on left side, Confusion Aggravating: Nothing Alleviating: Nothing Associated Signs and Symptoms: Positive: Confusion, Weakness - on left side. Negative: Headache, Dizziness - Additional Pertinent History Primary Care Physician: KIMBERLY - Allergy/Home Medications Allergies/Adverse Reactions: Allergies Allergy/AdvReac Type Severity Reaction Status Date / Time ticlopidine Allergy Intermediate Rash Verified 04/26/18 18:18 lorazepam Allergy Mild Agitation Verified 04/26/18 18:18 bupropion Allergy Unknown Unknown Verified 04/26/18 18:18 Reaction Details cholestyramine Allergy Unknown Unknown Verified 04/26/18 18:18 Reaction Details codeine AdvReac Intermediate GI Upset Verified 04/26/18 18:18 Home Medications: Home Medications prednisoLONE 1% OPHTH.SUSP* [Pred Forte 1%*] 1 drop .SEE ORDER DAILY 04/26/18 [ History Confirmed 04/26/18] PMH/Surg Hx/FS Hx/Imm Hx Endocrine/Hematology History: Reports: Hx Diabetes Cardiovascular History: Reports: Hx Hypercholesterolemia Denies: Hx Congestive Heart Failure, Hx Hypertension, Hx Pacemaker/ICD, Hx Peripheral Vascular Disease Respiratory History: Denies: Hx Asthma History: Denies: Hx Renal Disease Musculoskeletal History: Denies: Hx Arthritis, Hx Osteoporosis Sensory History: Reports: Hx Contacts or Glasses, Hx Vision Problem - left eye blurry Denies: Hx Cataracts, Hx Deafness, Hx Hearing Aid, Hx Hearing Problem, Other Sensory Impairments Opthamlomology History: Reports: Hx Contacts or Glasses, Hx Vision Problem - left eye blurry Denies: Hx Cataracts, Other Sensory Impairments Neurological History: Reports: Hx Dementia, Hx Transient Ischemic Attacks (TIA) Denies: Hx Seizures Psychiatric History: Reports: Hx Anxiety, Hx Depression Denies: Hx Panic Disorder - Cancer History Cancer Type, Location and Year: Family history - Surgical History Surgery Procedure, Year, and Place: CARPAL TUNNEL, APPY, BILAT CORNEAL TRANSPLANTS Hx Anesthesia Reactions: No - Immunization History Date of Tetanus Vaccine: Unk Date of Influenza Vaccine: None Infectious Disease History: Denies: Hx Clostridium Difficile, Hx Hepatitis, Hx Human Immunodeficiency Virus (HIV) - Family History Known Family History: Negative: Hypertension, Diabetes - Social History Alcohol Use: None Substance Use Type: Reports: None Smoking Status (MU): Former Smoker Amount Used/How Often: 1ppd Review of Systems Negative: Fever Negative: Epistaxis Negative: Cough Negative: Nausea Neurological: Negative - negative dizziness, Other - confusion, left sided facial droop Positive: Weakness - left sided weakness. Negative: Headache All Other Systems Reviewed And Are Negative: Yes Physical Exam - Summary Physical Exam Summary: Appearance: The patient is well-nourished in no acute distress and in no acute pain. Skin: The skin is warm and dry and skin color reflects adequate perfusion. HEENT: The head is normocephalic and atraumatic. The pupils are equal and reactive. The conjunctivae are clear and without drainage. Nares are patent and without drainage. Mouth reveals moist mucous membranes and the throat is without erythema and exudate. The external ears are intact. The ear canals are patent and without drainage. The tympanic membranes are intact. Neck: The neck is supple with full range of motion and non-tender. There are no carotid bruits. There is no neck vein distension. Respiratory: Chest is non-tender. Lungs are clear to auscultation and breath sounds are symmetrical and equal. Cardiovascular: Heart is regular rate and rhythm. There is no murmur or rub auscultated. There is no peripheral edema and pulses are symmetrical and equal. Abdomen: The abdomen is soft and non-tender. There are normal bowel sounds heard in all four quadrants and there is no organomegaly palpated. Musculoskeletal: There is no back tenderness noted. Extremities are non-tender with full range of motion. There is good capillary refill. There is no peripheral edema or calf tenderness elicited. Neurological: Patient is alert and oriented to person, place and time. The patient has symmetrical motor strength in all four extremities. Cranial nerves are grossly intact. Deep tendon reflexes are symmetrical and equal in all four extremities. GCS 15 Psychiatric: The patient has an appropriate affect and does not exhibit any anxiety or depression. Triage Information Reviewed: Yes Vital Signs Reviewed: Yes Diagnostics - Laboratory Result Diagrams: 04/26/18 16:58 04/26/18 16:58 Lab Statement: Any lab studies that have been ordered have been reviewed, and results considered in the medical decision making process. - Radiology CXR Radiology Interpretation Completed By: Radiologist Summary of Radiographic Findings: IMPRESSION: LOW LUNG VOLUMES, SMALL RIGHT BASILAR INFILTRATE SUGGESTIVE OF ATELECTASIS. Dr. Roberts has reviewed this report. - CT CT Brain CT Interpretation Completed By: Radiologist Summary of CT Findings: IMPRESSION: 1. NO EVIDENCE FOR GROSS ACUTE INFARCT, MASS EFFECT OR HEMORRHAGE. 2. ATROPHY AND FINDINGS SUGGESTIVE OF MILD TO MODERATE CHRONIC SMALL VESSEL ISCHEMIC. CHANGES. Dr. Roberts has reviewed this report. - EKG 16:56 Cardiac Rate: NL - at 72 bpm EKG Rhythm: Sinus Rhythm Summary of EKG Findings: Sinus rhythm at 72 bpm with left axis deviation NIH Scale - NIH Scale NIH Stroke Scale Comment: unobtainable secondary to dementia and receptive aphasia Course/Dx - Course Course Of Treatment: Ms. Neumann was very difficult evaluation which I believe is secondary partially to her underlying dementia and partially to a probable new aphasia. In any case she had an acute change in her speech and interaction and motor skills at 1520. She was evaluated by the telestroke neurologist who recommended TPA and CTA. She has received her TPA and is awaiting CTA at this time. If CT shows a retrievable clot she will be transferred to an appropriate institution otherwise she'll be admitted here for further evaluation and workup. Several attempts were made to perform an NIH stroke scale breath with the telestroke provider and without. A consistent result was unobtainable. 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 Scribe Documentation Reviewed: Yes Provider Attestation: The documentation as recorded by the scribe, Puja Cardozo accurately reflects the service I personally performed and the decisions made by me, Parveen Roberts MD Status of Scribe Document: Viewed
[2018-04-26 17:09] LABS: ABS Basophils 0.1 10^3/ul (0-0.2); ABS Eosinophils 0.1 10^3/ul (0-0.6); ABS Lymphocytes 1.6 10^3/ul (1.0-4.8); ABS Monocytes 0.5 10^3/ul (0-0.8); ABS Neutrophils 6.9 10^3/ul (1.5-7.7); ABS Nucleated RBC 0 10^3/ul; Eosinophil % 1.1 %; Hematocrit 45 % (35-47); Hemoglobin 14.5 g/dl (12.0-16.0); Lymphocyte % 17.2 %; Mean Corpuscular HGB Conc 33 g/dl (31-36); Mean Corpuscular Hemoglobin 28 pg (27-31); Mean Corpuscular Volume 86 fL (80-97); Mean Platelet Volume 9.7 fL (7.4-10.4); Nucleated Red Blood Cells % 0; Platelet Count 215 10^3/ul (150-450); Red Blood Count 5.21 10^6/ul (4.00-5.40); Red Cell Distribution Width 15 % (10.5-15); White Blood Count 9.2 10^3/ul (3.5-10.8)
[2018-04-26 17:20] LABS: Activated Partial Thrombo Time 38.8 seconds (26.0-36.3); INR 0.9 (0.77-1.02)
[2018-04-26 17:26] LABS: Albumin 3.5 g/dL (3.2-5.2); Albumin/Globulin Ratio 1.3 (1-3); BUN/Creatinine Ratio 16.5 (8-20); Calcium 8.8 mg/dL (8.6-10.3); EGFR African American 65.4 (>60); EGFR Non-African American 54.1 (>60); Globulin 2.7 g/dL (2-4); HDL Cholesterol 42.1 mg/dL; Total Bilirubin 1.1 mg/dL (0.2-1.0); Total Protein 6.2 g/dL (6.4-8.9)
[2018-04-26 17:27] LABS: Troponin I 0.01 ng/mL (<0.04)
[2018-04-26] MEDS ORDERED: Alteplase* 100 MG VIAL ONE (17:34)
[2018-04-26] MEDS ORDERED: ALTEPLASE IV ONE ×2 (17:36)
[2018-04-26] MEDS ORDERED: Iodixanol* (CONTRAST) 320 MG/ML 100 ML SDV IV ONE (18:03)
--- NOTE | 2018-04-26 19:07 | ED ---
Progress - Progress Note Progress Note: This patient was signed out by Dr. Roberts to Dr. Sawant, pending a CTA head/neck. Course/Dx - Course Course Of Treatment: I spoke with Dr. Marshall at [place] about the patient, and he stated that her CTA results do not warrant acute intervention. He says she does not need to be transferred and can be admitted to [facility]. Her CTA findings can be addressed in outpatient care. Diagnosis is pending MRI to confirm or deny a stroke. 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 - Provider Notifications Discussed Care Of Patient With: Precious Celestin Time Discussed With Above Provider: 17:50 Instructed by Provider To: Admit As Inpatient - Critical Care Time Critical Care Time: 30-74 min Discharge - Sign-Out/Discharge Documenting (check all that apply): Patient Departure - admission, Receiving Sign-Out Receiving patient FROM: Parveen Roberts - Discharge Plan Condition: Stable Disposition: ADMITTED TO [facility] Referrals: Bhavani Barahona MD [Primary Care Provider] - - Attestation Statements Document Initiated by Scribe: Yes Documenting Scribe: Cole Andres Provider For Whom Scribe is Documenting (Include Credential): Aníbal Sawant MD Scribe Attestation: ICole, scribed for Aníbal Sawant MD on 04/26/18 at 2152. Status of Scribe Document: Ready
[2018-04-26] MEDS: NS 0.9% 1000 ML** 1,000 ML IV SCH (23:13)
[2018-04-26] MEDS ORDERED: niCARdipine 0.1MG/ML IVPREMIX* 20 MG/200 ML BAG IV ONE (23:32)
[2018-04-26] MEDS ORDERED: niCARdipine 0.1MG/ML IVPREMIX* 20 MG/200 ML BAG IV SCH (23:45)
--- NOTE | 2018-04-27 00:17 | HP ---
CC: Dr. Bhavani Barahona HISTORY AND PHYSICAL: DATE OF ADMISSION: 04/26/18 PRIMARY CARE PROVIDER: Dr. Bhavani Barahona. CHIEF COMPLAINT: Altered mental status. HISTORY OF PRESENT ILLNESS: This is an 87-year-old female with past medical history of hyperlipidemia, who was taking Lipitor as well as Plavix, who now presents to the emergency room because of change in her neurological status. Daughter is at bedside and gives most of the history, patient also has history of dementia. The patient's daughter, Lavonne, is at bedside, who reports to me that the patient used to be taking Plavix; however, this was stopped on Saturday , 04/22/18, secondary to patient having some difficulty with swallowing. This afternoon, the patient was getting ready to go out with the daughter and the daughter found that the patient was not moving and was just staring at the window and the patient was having a hard time moving around, so 911 was called. Over there, the patient was noted to have left facial droop, left upper extremity weakness, and left lower extremity weakness. Upon arrival to the emergency room, e[facility] h[facility] was called. CT of the head was done. CT of the head did not show any acute pathology. Subsequently, the patient was deemed a candidate for tPA by Dr. Roberts in the emergency room and the patient received tPA. Additionally, the patient had a CTA also done in the emergency room, which had showed some occlusion; however, Dr. Marshall at [place], was contacted regarding the CTA results and he recommended that the patient does not warrant any acute intervention and recommended that the patient to be a candidate to be admitted to the [facility]. Subsequently, the hospitalist service was called. Currently, the patient is answering all my questions appropriately, does not seem to have any weakness. Per the daughter and patient, there were no symptoms of fevers, no chills, no chest pain, no shortness of breath, no abdominal pain, no nausea, no vomiting, no rashes or lesions, no sore throat, no change in her vision or hearing. Otherwise the review of systems was done and it was negative. PAST MEDICAL HISTORY: 1. Dementia. 2. Hyperlipidemia. PAST SURGICAL HISTORY: Replacement of cornea. MEDICATIONS: Home medications include: 1. Atorvastatin 80 mg daily. 2. Plavix 75 mg daily. Of note, the last dose of Plavix was on 04/22/18. 3. Prednisone eye drops daily. ALLERGIES: Include TICLOPIDINE causes rash; LORAZEPAM causes agitation; BUPROPION, CHOLESTYRAMINE, and CODEINE, which causes GI upset. FAMILY HISTORY: Mother: Cancer. SOCIAL HISTORY: The patient lives at home with daughter, former smoker, no alcohol use. PHYSICAL EXAMINATION GENERAL: This is an elderly female, lying in an ER stretcher, in no acute distress. VITAL SIGNS: Currently blood pressure is 181/85, heart rate of 75, respiratory rate of 22, saturation 97% on nasal cannula, temperature of 98.5 degrees Fahrenheit. HEENT: There is no nystagmus. Pupils are round and reactive. There is no oropharyngeal erythema. LUNGS: There is no tachypnea. No use of accessory muscles. HEART: No chest wall tenderness. Regular rate and rhythm. Soft systolic murmur, best heard at the apex. ABDOMEN: Bowel sounds are normoactive in all 4 quadrants. Abdomen is soft, nontender, nondistended. NEUROLOGIC: The patient is alert and oriented x2, oriented to person and place. She knows the year; however, does not know the month. Does not know the president. Her tongue is midline. There is no facial droop. Symmetric smile. She follows all my commands appropriately. There is no dysmetria. Motor is 5/ 5 all 4 extremities. DTRs are 2+ bilaterally. Of note, I discussed with the daughter at bedside and she thinks that the patient has made marked improvement in neurological status. The patient is also able to identify common objects such as a pen, clock, and glasses. There is no aphasia, no dysarthria. There is no slurred speech. There are no rashes or lesions. DIAGNOSTIC STUDIES/LAB DATA: Blood work shows white blood cell count of 9.2, hemoglobin of 14.5, hematocrit of 45. INR of 0.90, APTT of 38.8, BUN of 16, creatinine of 0.97, glucose of 221, total bilirubin of 1.10, total protein of 6.2, troponin of 0.01. Brain CT shows no evidence of gross acute infarct, mass effect or hemorrhage. Atrophy and findings suggestive of [id number] chronic small vessel ischemic changes. Chest x-ray was done, which shows low lung volumes, small bibasilar infiltrates suggestive of atelectasis. EKG was done, which shows sinus rhythm. Head CTA was done, which shows moderate stenosis of bilateral internal carotid arteries compared to the prior study, mildly stenotic bilateral common carotid arteries, advanced compare to prior study, and chronically occluded left subclavian artery with retrograde left vertebral artery filling via the right, stable right thyroid nodule. IMPRESSION AND PLAN: 1. Stroke, status post tPA: We will admit the patient to the intensive care unit. Monitor neuro checks very closely. Goal blood pressure of less than 185/ 105, neuro checks very regularly, monitor the vital signs. At this point, we will order a CT 24 hours post tPA; hold aspirin and Plavix for any further anticoagulation for the first 24 hours. Continue statin. We have also ordered a swallowing evaluation. I discussed the case with Dr. Saini for neurological consultation.Nicardipine drip titration as needed to maintain blood pressure goals. 2. Dyslipidemia, continue Lipitor. 3. Continue supportive care. 4. Monitor the patient closely in the intensive care unit. 5. For DVT prophylaxis, sequential compression device. [id number]/[facility] #: [id number] KIMBERLEE
--- NOTE | 2018-04-27 08:07 | PN ---
Subjective Date of Service: 04/27/18 Interval History: Restless overnight Required nicardipine gtt for several short durations, now off Failed bedside swallow evaluation Objective Active Medications: Atorvastatin Calcium (Lipitor*) 40 mg PO QPM [facility] Sodium Chloride (Ns 0.9% 1000 Ml) 1,000 mls @ 75 mls/hr IV PER RATE [facility] Last Admin: 04/26/18 23:13 Dose: 75 mls/hr Nicardipine/Sodium Chloride (Cardene 0.1mg/Ml Ivpremix*) 20 mg in 200 mls @ 25 mls/hr IV .(as Initial Rate) [facility]; Protocol Last Admin: 04/26/18 23:41 Dose: 25 mls/hr Prednisolone Acetate (Pred Forte 1%*) 1 drop .SEE ORDER DAILY [facility] Vital Signs - 8 hr 04/27/18 04/27/18 04/27/18 00:15 00:32 00:43 Temperature Pulse Rate 93 97 Respiratory 27 19 Rate Blood Pressure 133/102 131/84 (mmHg) O2 Sat by Pulse 97 Oximetry 04/27/18 04/27/18 04/27/18 01:00 01:01 01:04 Temperature Pulse Rate 93 94 Respiratory 22 17 19 Rate Blood Pressure 174/95 (mmHg) O2 Sat by Pulse 96 94 Oximetry 04/27/18 04/27/18 04/27/18 01:30 02:00 02:01 Temperature Pulse Rate 93 89 88 Respiratory 19 31 21 Rate Blood Pressure 164/115 147/89 (mmHg) O2 Sat by Pulse 98 97 94 Oximetry 04/27/18 04/27/18 04/27/18 02:31 03:00 03:01 Temperature Pulse Rate 94 100 96 Respiratory 15 18 24 Rate Blood Pressure 187/97 175/84 (mmHg) O2 Sat by Pulse 95 97 96 Oximetry 04/27/18 04/27/18 04/27/18 03:11 03:30 03:43 Temperature 98.7 F Pulse Rate 84 Respiratory 22 14 Rate Blood Pressure 146/78 (mmHg) O2 Sat by Pulse 94 Oximetry 04/27/18 04/27/18 04/27/18 04:00 04:01 04:30 Temperature Pulse Rate 92 92 94 Respiratory 20 29 18 Rate Blood Pressure 148/81 138/84 (mmHg) O2 Sat by Pulse 95 95 97 Oximetry 04/27/18 04/27/18 04/27/18 05:00 05:01 05:30 Temperature Pulse Rate 84 85 82 Respiratory 19 16 12 Rate Blood Pressure 143/79 126/85 (mmHg) O2 Sat by Pulse 95 93 95 Oximetry 04/27/18 04/27/18 04/27/18 06:00 06:01 06:04 Temperature Pulse Rate 93 92 Respiratory 23 18 24 Rate Blood Pressure 148/85 (mmHg) O2 Sat by Pulse 97 94 Oximetry 04/27/18 04/27/18 04/27/18 06:30 07:00 07:01 Temperature Pulse Rate 86 90 88 Respiratory 19 23 21 Rate Blood Pressure 167/96 151/84 (mmHg) O2 Sat by Pulse 97 94 94 Oximetry Oxygen Devices in Use Now: None Appearance: lying 20 deg in bed. NAD Eyes: No Scleral Icterus, PERRLA Ears/Nose/Mouth/Throat: NL Teeth, Lips, Gums, Clear Oropharnyx Neck: Trachea Midline Respiratory: Symmetrical Chest Expansion and Respiratory Effort, Clear to Auscultation Cardiovascular: RRR Abdominal: NL Sounds; No Tenderness; No Distention, No Hepatosplenomegaly Lymphatic: No Cervical Adenopathy Extremities: No Edema Neurological: - - AOx2 to hospital and self but not year, wants to "go for a drive" - difficult exam but face symmetric, moves all 4 extremities, no dysarthria Result Diagrams: 04/26/18 16:58 04/26/18 16:58 Assess/Plan/Problems-Billing Assessment: 87 yo F phx HLD and dementia pw left facial droop , left arm/leg weakness s/p tPA 04/26 in ED - Patient Problems (1) CVA (cerebral vascular accident) Comment: tPA 04/26/[address] head at 24 hours today bed rest 24 hours failed bedside swallow eval, speech eval ordered unable to get labs on PIV, check lipids tomorrow add on HbA1c BP control with nicardipine if needed neuro c/s (2) Dementia Comment: high risk for hospital acquired delerium frequent reorientation (3) Hypertension Comment: nicardipine gtt transition to patch (maybe clonidine) if need continues although BP has been somewhat labile and low (120s) (4) Carotid stenosis Comment: per [place] no acute intervention (5) Dyslipidemia Comment: statin when tolerating PO (6) DVT prophylaxis Comment: SCDs
--- NOTE | 2018-04-27 11:23 | CONS ---
CC: Bhavani Barahona MD * DATE OF CONSULT: 04/27/18 PRIMARY CARE PROVIDER: Bhavani Barahona MD LOCATION: She is currently in ICU room 3. REASON FOR CONSULTATION: Altered mental status with likely stroke, status post tPA. SOURCE: I did a chart review. Family was not at the bedside this morning, we will attempt to contact. The patient is unable to give me any meaningful history. HISTORY OF PRESENT ILLNESS: Ms. Neumann is an 87-year-old female who has a history of carotid artery disease as well as hyperlipidemia, taking Lipitor and Plavix at home per the daughter who is at the bedside yesterday and giving the history. She does have a history of dementia, apparently was on Plavix, but that was stopped on 04/22/18 due to some problems with swallowing, so she has not been on it for the last 4 to 5 days. Yesterday afternoon, she was going to go out with her daughter and she was found not moving, staring out of the window , 911 was called. It was noted that she had a left facial droop and left upper and lower extremity weakness. In the ER, a ewa harris was called. CT of the head showed no acute changes. [facility] was notified and felt that she was a good candidate for tPA, which she did receive. She tolerated it well, subsequently a CT angiogram of the head and neck was done, which showed carotid stenosis, showed some progression, but it was felt that she was not a candidate for acute intervention, and Sod recommended that she be admitted to [facility] for close monitoring. She was admitted to the ICU overnight for tPA protocol. Overnight, her blood pressures have been above 180 at times, requiring IV blood pressure medication. She has otherwise been stable. The nurse reports that the family notes that she has been around her baseline from a mental status perspective. Per the daughter yesterday, there was no recent illnesses, fevers, chills. No reported chest pain or shortness of breath. No abdominal pain, no nausea or vomiting. No rashes or lesions. No sore throat, no change in her vision or hearing. She has otherwise been in her usual state of health. Unfortunately, the patient was unable to give me any meaningful supplemental history, is confused this morning. The nurse states that she has been agitated at times, sometimes trying to get out of bed, but re - orientable. PAST MEDICAL HISTORY: Includes hyperlipidemia and dementia. PAST SURGICAL HISTORY: Includes cornea replacement. HOME MEDICATIONS: 1. Atorvastatin 80 mg a day. 2. Plavix 75 mg a day, last dose on 04/22/18. 3. Prednisone eye drops. ALLERGIES: She has allergy to CODEINE, CHOLESTYRAMINE, BUPROPION, LORAZEPAM, and TICLOPIDINE. FAMILY HISTORY: Per the chart includes a history of cancer in her mother. SOCIAL HISTORY: She was a prior smoker, but quit sometime ago. Reported some social alcohol use "I like [employer]" but no heavy use. She lives with her daughters. PHYSICAL EXAM: Vital Signs: Currently 145/101, temperature this morning 100, heart rate of 92, respiratory rate of 22, O2 sat of 97%. In general, she is a well- nourished, well-developed female. The examination is very difficult. She is noncompliant. She is pleasant, though awake, sitting in her bed. A nurse is at the bedside and she has one-to-one assistance at this point. She is normocephalic, atraumatic. Sclerae are anicteric. Mucous membranes are moist. Oropharynx is clear. Nares are patent. Neck is supple. No thyromegaly. No carotid bruits. Chest: Clear to auscultation bilaterally. Cardiovascular is regular rate and rhythm. No murmurs. Abdomen is nontender. Extremities: There is no significant clubbing, cyanosis, or edema appreciated. Her skin is warm and dry. On neurologic exam, she is awake, she is alert, she is oriented to [facility], otherwise she is confused and disoriented. She is following simple commands. Her speech is fluent. There is some mild dysarthria and some mild word finding difficulties at times. She also perseverates and asked me several questions multiple times. Her mood appears somewhat anxious, but she smiles and is pleasant. Cranial Nerves: Pupils are equally round and reactive to light, although she did forcefully close her eyes at times when I was trying to examine her and seemed to be bothered by the light. Extraocular muscles were difficult to assess, but she seems to track in all quadrant. She denies any double vision. There is no nystagmus appreciated. No ptosis. Visual aden were difficult to assess, but she blinks to threat. Her face, she has some mild left lower facial droop, but otherwise face is symmetric. Facial sensation is intact to light touch. Tongue is midline. Palate raises symmetrically. Sternocleidomastoid intact bilaterally. She spontaneously moves all extremities antigravity, but again would not comply with the examination and hold her arms or legs up. She does seem to have some weakness in the left upper extremity and left lower extremity, but poor effort and I cannot asses for drift. Sensation: She does withdraw to pain x4. She notes that she feels light touch on the right side and pinprick on the right side, but when I asked if she felt light touch and pinprick on the left side, she was somewhat confused and may have some sensory loss, although she does respond to pain. DTRs were trace in the upper extremities at the biceps and brachioradialis, trace at the patella bilaterally, absent at the ankle. She has upgoing Babinski's bilaterally and withdraw bilaterally. [id number] and rapid alternating movements are generally intact. There is no resting or intention tremor appreciated. Tone is normal. Gait could not be tested at this time. She is confined to the bed. DIAGNOSTIC STUDIES/LAB DATA: Lab work includes CBC with diff that was normal. PTT of 38.8, INR of 0.9, a complete metabolic profile with a creatinine of 0.97 , glucose of 221, total bili of 1.10, total protein of 6.2, her triglycerides are 105, cholesterol 143, LDL of 80, HDL of 42, lactic acid of 1.8. Studies done include a brain CT done yesterday at 4:45 showed no evidence of acute gross infarct, no mass effect or hemorrhage. She does have evidence of mild-to- moderate chronic small vessel disease and some atrophy noted. CT angiogram of the head and neck shows some mild atherosclerotic right internal carotid artery disease, mild atherosclerotic left internal carotid artery disease causing mild stenosis. The CT angiogram of the head appears essentially normal. Impression: 1. Moderately stenotic bilateral internal carotid arteries advanced compared to prior study. 2. Mildly stenotic bilateral common carotid arteries advanced compared to prior study. 3. Chronically occluded left subclavian artery with retrograde left vertebral artery filling via the right. 4. Stable right thyroid left lobe nodule. No followup recommended. She had a chest x-ray done yesterday, which showed low lung volumes, small right basilar infiltrates, suggestive of atelectasis. ASSESSMENT AND PLAN: Ms. Neumann is an 87-year-old female with a history of hyperlipidemia on Plavix as well, which was stopped 4 to 5 days ago due to problem swallowing. She presented to the hospital with acute onset of left- sided face, arm, and leg weakness since possibly some numbness, some speech difficulties as well, dysarthria, and some difficulty swallowing. She was evaluated by [facility] and felt to be a good candidate for tPA. She did receive tPA yesterday, tolerated the infusion well with no subsequent issues. She also had a CT angiogram, which showed occlusion of subclavian as well as some carotid disease, which had progressed, but Sod felt that this is something that was not acute and it could be dealt with at a later date as an outpatient. She was admitted to the ICU for tPA protocol, has been confined to the bed, has been no needle sticks with blood pressure control, requiring IV blood pressure medications at times. The post tPA protocol was being followed, would recommend repeating a CT scan of the head at 24 hours. If there is no evidence of bleeding then antiplatelet could be started. If she is having difficulty swallowing, we may need to use rectal aspirin. She is having some difficulty swallowing. She is n.p.o. currently. Speech has been consulted for a swallowing evaluation. I would keep her n.p.o. for now per the protocol and for 24 hours and then would keep her n.p.o. afterwards until Speech has had the ability to evaluate her for dietary modifications. Continue the blood pressure monitoring with the systolic blood pressure greater than 180 or less than 110, diastolic blood pressure greater than 105 or less than 60, pulse less than 60 or greater than 110, watch for any developing fevers, possibility of aspiration pneumonia. Currently her temperature this morning is 100, I would use Tylenol rectally to treat any fevers above 100. Would consult Physical Therapy tomorrow once stable, Occupational Therapy as well, and Speech. Continue GI prophylaxis, IV fluids, one-to-one sitter is necessary. Would avoid any sedating medications, which could affect her neurologic examination. MRI of the brain will be ordered tomorrow. Echocardiogram is pending. I will continue to follow patient closely and make further recommendations as necessary. Thank you for the opportunity to participate in the care of this very interesting patient. [id number]/[facility] #: [id number] KIMBERLEE
[2018-04-27] MEDS: NS 0.9% 1000 ML** 1,000 ML IV SCH (13:11)
[2018-04-27] MEDS: prednisoLONE 1% OPHTH.SUSP* 5 ML OPHTH.SUSP LEFT EYE SCH (16:49)
[2018-04-27] MEDS: Atorvastatin* 40 MG TAB PO SCH (16:51)
[2018-04-27 19:08] LABS: Urine Appearance Clear; Urine Bacteria Absent (Absent); Urine Bilirubin Negative (Negative); Urine Blood 1+ (Negative); Urine Color Yellow; Urine Glucose Negative (Negative); Urine Ketones 1+ (Negative); Urine Nitrite Negative (Negative); Urine Protein Negative (Negative); Urine Red Blood Cell 2+(6-10/hpf) (Absent); Urine Specific Gravity 1.026 (1.010-1.030); Urine Squamous Epithelial Cell Present (Absent); Urine Urobilinogen Positive (Negative); Urine White Blood Cell Trace(0-5/hpf) (Absent)
[2018-04-28] MEDS: NS 0.9% 1000 ML** 1,000 ML IV SCH (03:17)
[2018-04-28 05:38] LABS: ABS Basophils 0.1 10^3/ul (0-0.2); ABS Eosinophils 0.1 10^3/ul (0-0.6); ABS Lymphocytes 1.4 10^3/ul (1.0-4.8); ABS Monocytes 0.8 10^3/ul (0-0.8); ABS Neutrophils 8.2 10^3/ul (1.5-7.7); ABS Nucleated RBC 0 10^3/ul; Eosinophil % 0.6 %; Hematocrit 42 % (35-47); Hemoglobin 13.7 g/dl (12.0-16.0); Lymphocyte % 13.3 %; Mean Corpuscular HGB Conc 33 g/dl (31-36); Mean Corpuscular Hemoglobin 28 pg (27-31); Mean Corpuscular Volume 86 fL (80-97); Mean Platelet Volume 9.9 fL (7.4-10.4); Nucleated Red Blood Cells % 0; Platelet Count 187 10^3/ul (150-450); Red Blood Count 4.89 10^6/ul (4.00-5.40); Red Cell Distribution Width 15 % (10.5-15); White Blood Count 10.6 10^3/ul (3.5-10.8)
[2018-04-28 05:42] LABS: Calcium 8.5 mg/dL (8.6-10.3); Potassium 3.5 mmol/L (3.5-5.0)
[2018-04-28 05:48] LABS: BUN/Creatinine Ratio 18.7 (8-20); EGFR Non-African American 72.8 (>60); HDL Cholesterol 37.2 mg/dL
--- NOTE | 2018-04-28 07:26 | PN ---
Subjective Date of Service: 04/28/18 Length of Stay: 2 Days Interval History: I spoke with the nurse. Overnight, no new issues. Not always following commands but in general, she was redirectable. Pleasantly confused. Blood pressures have been within post-tpa range and generallly stable. This morning, she insists on getting up to go urinate but was able to redirect and she used the bedpan. She refuses to comply with my exam today. When I asked her to role over or straighten her legs, she refused. She would not open her eyes. With that said, she was very pleasant. She states "I'm tired." Per the nurse, she has been moving all extremities, non-focal. Remains NPO at this point. CT Head: repeat. Images reviewed. Moderate sized right parietal stroke evolving with some linear densities concerning for petechial hemorrhages. Objective Active Medications: Atorvastatin Calcium (Lipitor*) 40 mg PO QPM [facility] Last Admin: 04/27/18 16:51 Dose: Not Given Sodium Chloride (Ns 0.9% 1000 Ml) 1,000 mls @ 75 mls/hr IV PER RATE [facility] Last Admin: 04/28/18 03:17 Dose: 75 mls/hr Nicardipine/Sodium Chloride (Cardene 0.1mg/Ml Ivpremix*) 20 mg in 200 mls @ 25 mls/hr IV .(as Initial Rate) [facility]; Protocol Last Admin: 04/26/18 23:41 Dose: 25 mls/hr Prednisolone Acetate (Pred Forte 1%*) 1 drop LEFT EYE DAILY [facility] Last Admin: 04/27/18 16:49 Dose: 1 drop Vital Signs 04/27/18 04/27/18 04/27/18 07:30 08:00 08:01 Temperature 100 F Pulse Rate 88 93 93 Respiratory 21 10 22 Rate Blood Pressure 170/91 145/101 (mmHg) O2 Sat by Pulse 95 96 97 Oximetry 04/27/18 04/27/18 04/27/18 08:30 09:00 09:01 Temperature Pulse Rate 88 85 90 Respiratory 18 15 16 Rate Blood Pressure 163/93 157/91 (mmHg) O2 Sat by Pulse 94 96 95 Oximetry 04/27/18 04/27/18 04/27/18 09:30 10:00 10:01 Temperature Pulse Rate 85 84 87 Respiratory 30 8 13 Rate Blood Pressure 134/79 114/75 (mmHg) O2 Sat by Pulse 98 96 95 Oximetry 04/27/18 04/27/18 04/27/18 10:31 11:00 11:01 Temperature Pulse Rate 83 91 85 Respiratory 15 36 19 Rate Blood Pressure 153/99 135/90 (mmHg) O2 Sat by Pulse 91 98 97 Oximetry 04/27/18 04/27/18 04/27/18 11:31 12:00 12:01 Temperature 97.6 F Pulse Rate 80 68 68 Respiratory 21 17 19 Rate Blood Pressure 148/77 151/69 (mmHg) O2 Sat by Pulse 93 94 96 Oximetry 04/27/18 04/27/18 04/27/18 12:30 13:00 13:31 Temperature Pulse Rate 79 69 77 Respiratory 20 14 24 Rate Blood Pressure 170/76 169/115 128/69 (mmHg) O2 Sat by Pulse 96 95 93 Oximetry 04/27/18 04/27/18 04/27/18 14:00 14:56 15:00 Temperature Pulse Rate 73 70 75 Respiratory 17 20 20 Rate Blood Pressure 129/62 140/106 (mmHg) O2 Sat by Pulse 94 95 96 Oximetry 04/27/18 04/27/18 04/27/18 15:01 16:00 16:01 Temperature 97.1 F Pulse Rate 75 78 78 Respiratory 19 18 21 Rate Blood Pressure 137/83 (mmHg) O2 Sat by Pulse 94 97 97 Oximetry 04/27/18 04/27/18 04/27/18 17:00 17:01 18:00 Temperature Pulse Rate 70 74 66 Respiratory 18 25 16 Rate Blood Pressure 151/73 (mmHg) O2 Sat by Pulse 95 96 96 Oximetry 04/27/18 04/27/18 04/27/18 18:22 19:01 19:10 Temperature Pulse Rate 70 85 Respiratory 18 15 18 Rate Blood Pressure 176/89 (mmHg) O2 Sat by Pulse 95 92 Oximetry 04/27/18 04/27/18 04/27/18 19:26 19:36 20:00 Temperature 99.8 F Pulse Rate 67 69 Respiratory 22 18 Rate Blood Pressure 156/86 (mmHg) O2 Sat by Pulse 96 95 Oximetry 04/27/18 04/27/18 04/27/18 20:01 20:21 21:00 Temperature Pulse Rate 70 74 Respiratory 19 17 20 Rate Blood Pressure 124/80 (mmHg) O2 Sat by Pulse 94 95 Oximetry 04/27/18 04/27/18 04/27/18 21:01 21:02 22:00 Temperature Pulse Rate 79 78 Respiratory 19 20 16 Rate Blood Pressure 165/71 116/77 (mmHg) O2 Sat by Pulse 94 92 Oximetry 04/27/18 04/27/18 04/27/18 22:02 23:00 23:10 Temperature Pulse Rate 85 Respiratory 16 16 15 Rate Blood Pressure 175/97 (mmHg) O2 Sat by Pulse 95 Oximetry 04/27/18 04/28/18 04/28/18 23:26 00:00 00:01 Temperature 99.2 F Pulse Rate 84 83 84 Respiratory 7 15 18 Rate Blood Pressure 173/84 (mmHg) O2 Sat by Pulse 96 95 95 Oximetry 04/28/18 04/28/18 04/28/18 00:26 01:00 01:01 Temperature Pulse Rate 66 62 76 Respiratory 18 18 19 Rate Blood Pressure 158/71 165/71 (mmHg) O2 Sat by Pulse 96 96 96 Oximetry 04/28/18 04/28/18 04/28/18 02:00 02:01 03:00 Temperature Pulse Rate 76 76 Respiratory 6 2 20 Rate Blood Pressure 147/74 (mmHg) O2 Sat by Pulse 95 95 Oximetry 04/28/18 04/28/18 04/28/18 03:01 03:14 03:49 Temperature 99.6 F Pulse Rate 66 77 Respiratory 18 19 Rate Blood Pressure 160/82 (mmHg) O2 Sat by Pulse 91 96 Oximetry 04/28/18 04/28/18 04/28/18 04:00 04:01 04:21 Temperature Pulse Rate 67 74 Respiratory 25 25 18 Rate Blood Pressure 173/66 (mmHg) O2 Sat by Pulse 95 95 Oximetry 04/28/18 04/28/18 04/28/18 05:00 05:04 05:05 Temperature Pulse Rate 93 75 Respiratory 16 21 22 Rate Blood Pressure 169/91 (mmHg) O2 Sat by Pulse 94 94 Oximetry 04/28/18 04/28/18 04/28/18 06:00 06:01 06:04 Temperature Pulse Rate 57 Respiratory 18 17 16 Rate Blood Pressure 110/62 (mmHg) O2 Sat by Pulse 96 Oximetry Intake and Output Last 24 Hours 04/26/18 04/27/18 04/28/18 04/29/18 06:59 06:59 06:59 06:59 Intake Total 557 1696 Output Total 950 445 Balance -393 1251 Weight 129 lb 3.054 oz 126 lb 5.198 oz Intake: IV Fluids 510 1696 NS (0.9%) 510 1696 Medicated IV 47 CC - Nicarpidine/Cardene 47 Output: Urine 950 445 Other: Estimated Void Medium Medium # Voids 1 1 Oxygen Devices in Use Now: None Neurology Exam: General: Sleeping but awakens, pleasant but confused HEENT: Normocephalic/atraumatic, sclera anicteric, mucous membranes moist Neck: Supple Chest: Clear to auscultation bilaterally Cardiovascular: Regular rate and rhythm without murmurs, rubs, gallops Abdomen: Soft, nontender/nondistended Extremities: No clubbing, cyanosis, or edema Neurological Findings: Oriented to person and "bed." Speech: fluent without dysarthria, follows some simple commands, will squeeze hands. Cranial Nerve: Refuses to open eyes, face shows mild left droop, EOM grossly intact, tongue is midline, pupils appear equal. Motor: Moving all extremities antigravity, may have some weakness of LUE but difficult to exam. Would not comply with drift exam Sensation: W/D ti pain, states that she feels light touch in all extremities. Difficult to test for extinction Deep Tendon Reflex: Down throughout, symmetric, w/d Babinski No obvious resting or action tremors Gait: Confined to bed. Result Diagrams: 04/28/18 05:30 04/28/18 05:30 Assessment/Plan Assessment: 87 year old female with a history of hyperlipidemia, carotid disease, dementia, presented with acute right parietal stroke, status post tpa and doing well. Remains confused but no significant dysarthria. Examination is difficult and she may have some mild residuals but seem to be improving. Demenita appears to be at baseline. 1. CT scan showed possible developing small hemorrhages. Now > 24 hours post tpa but will hold antiplatelet for now pending re-image. Will order MRI to better evaluate stroke and look for evidence of embolic strokes 2. NPO for now. Speech evaluation pending. Advance as able. 3. Would allow some permissive HTN, treat for SBP > 180, DBP > 100 4. Restart Statin once able to take PO 5. Follow up Echo 6. PT 7. Carotid disease, non-critical, will need to follow this as an outpatient 8. Dementia: Plan to more fully evaluate as an outpatient once stable and baseline, no meds for now 8. Use SCDs for DVT prophylaxis 9. Plan for o/p follow up on discharge in 8-12 weeks.
[2018-04-28] MEDS: prednisoLONE 1% OPHTH.SUSP* 5 ML OPHTH.SUSP LEFT EYE SCH (09:49)
--- NOTE | 2018-04-28 12:08 | ECHO ---
Patient: ADA LUNDBERG [facility] Rec#: [id number] : 1930 Date: 04/28/2018 Age: 87y Weight: kg / NaN lbs Sex: F Room#: ICU-3 Admit Date#: 04/26/2018 Type: Inpatient Referring: Precious Celestin Reading: Rolf German MD [employer] Officer: Rukhsana Cox RDCS CC: Bhavani Barahona MD Transthoracic Echocardiogram Indication: CVA BP: 110/62 HR: 65 Rhythm: NSR with PACs Findings History: CVA with tPa given,HLD,dementia,soft systolic murmur. Technical Comments: The study is technically difficult. Due to this patient's inability to comply with positioning requirements. Completed at 1010. Left Ventricle: The left ventricular chamber size is decreased. Moderate concentric left ventricular hypertrophy is observed. There is increased basal septal hypertrophy noted without evidence of an increased gradient across the left ventricular outflow tract. Global left ventricular wall motion and contractility are within normal limits. The left ventricle appears hyperdynamic. The estimated ejection fraction is greater than 65%. Abnormal left ventricular diastolic function is observed. Left Atrium: The left atrium is mildly dilated. Right Ventricle: The right ventricular cavity size is normal. The right ventricular global systolic function is normal. Right Atrium: The right atrium is not well visualized. Aortic Valve: The aortic valve is trileaflet. There is evidence of aortic sclerosis without stenosis. There is no evidence of aortic regurgitation. There is no evidence of aortic stenosis. Mitral Valve: There is mitral annular calcification. The mitral valve leaflets are mildly thickened. There is mild to moderate mitral regurgitation. There is no evidence of mitral stenosis. Tricuspid Valve: The tricuspid valve leaflets are normal. There is no evidence of tricuspid valve regurgitation. Unable to estimate the right ventricular systolic pressure. There is no tricuspid stenosis. Pulmonic Valve: The pulmonic valve appears normal. There is no evidence of pulmonic regurgitation. There is no pulmonic stenosis. Pericardium: The pericardium appears normal. A pericardial fat pad is visualized. Aorta: The ascending aorta is not well visualized. The aortic arch is not well visualized. There is mild dilatation of the aortic root. Pulmonary Artery: The main pulmonary artery is not well visualized. Venous: The venous system is not well visualized. Summary: There are no significant changes when compared to the previous study done on 05/10/16 Conclusions Moderate concentric left ventricular hypertrophy is observed. There is increased basal septal hypertrophy noted without evidence of an increased gradient across the left ventricular outflow tract. Global left ventricular wall motion and contractility are within normal limits. The estimated ejection fraction is greater than 65%. The right ventricular global systolic function is normal. There is no evidence of aortic stenosis. There is mild to moderate mitral regurgitation. There is no evidence of tricuspid valve regurgitation. Unable to estimate the right ventricular systolic pressure. The pericardium appears normal. Measurements Name Value Normal Range RVIDd (AP) 2D 2.8 cm (0.9 - 2.6) RVDdMajor (2D) 2.7 cm (2.2 - 4.4) IVSd (2D) 1.2 cm (0.6 - 1) LVPWd (2D) 1.4 cm (0.6 - 1) LVIDd (2D) 3.2 cm (3.6 - 5.4) LVIDs (2D) 2.1 cm - LV FS (2D) 34 % (25 - 45) Aortic Annulus 1.7 cm (1.4 - 2.6) Ao root diameter (2D) 3.7 cm (2.1 - 3.5) LA dimension (AP) 2D 4.4 cm (2.3 - 3.8) LAd ISD 4CH 5.6 cm (2.9 - 5.3) LA ISD 4CH W 4.8 cm (2.5 - 4.5) Name Value Normal Range LA ESV SP 4CH (A/L) 35 ml - LA ESV SP 2CH (A/L) 26 ml - LA ESV BP (A/L) index 32 ml/m2 - Name Value Normal Range MV E-wave Vmax 0.9 m/sec - MV deceleration time 356 msec - MV A-wave Vmax 1.2 m/sec - MV E:A ratio 0.8 ratio - LV septal e' Vmax 0.05 m/sec - LV lateral e' Vmax 0.05 m/sec - LV E:e' septal ratio 12.85 ratio - LV E:e' lateral ratio 18 ratio - Name Value Normal Range AV Vmax 1.3 m/sec - AV VTI 31.7 cm - AV peak gradient 7 mmHg - AV mean gradient 3 mmHg - LVOT Vmax 0.8 m/sec - LVOT VTI 18.9 cm - LVOT peak gradient 3 mmHg - LVOT mean gradient 1 mmHg - Name Value Normal Range PV Vmax 0.6 m/sec - PV peak gradient 1.54 mmHg -
--- NOTE | 2018-04-28 12:47 | PN ---
Subjective Date of Service: 04/28/18 Interval History: HOSPITALIST PROGRESS NOTE Patient seen and examined at bedside. Care reviewed and d/w Idania Cleary RN. Last night events noted. Patient is off Nicardipine drip. She states she's tired , but otherwise offers no other complaints. Family History: Unchanged from Admission Social History: Unchanged from Admission Past Medical History: Unchanged from Admission Objective Active Medications: Atorvastatin Calcium (Lipitor*) 40 mg PO QPM [facility] Last Admin: 04/27/18 16:51 Dose: Not Given Sodium Chloride (Ns 0.9% 1000 Ml) 1,000 mls @ 75 mls/hr IV PER RATE [facility] Last Admin: 04/28/18 03:17 Dose: 75 mls/hr Nicardipine/Sodium Chloride (Cardene 0.1mg/Ml Ivpremix*) 20 mg in 200 mls @ 25 mls/hr IV .(as Initial Rate) [facility]; Protocol Last Admin: 04/26/18 23:41 Dose: 25 mls/hr Prednisolone Acetate (Pred Forte 1%*) 1 drop LEFT EYE DAILY [facility] Last Admin: 04/28/18 09:49 Dose: 1 drop Vital Signs - 8 hr 04/28/18 04/28/18 04/28/18 05:00 05:04 05:05 Temperature Pulse Rate 93 75 Respiratory 16 21 22 Rate Blood Pressure 169/91 (mmHg) O2 Sat by Pulse 94 94 Oximetry 04/28/18 04/28/18 04/28/18 06:00 06:01 06:04 Temperature Pulse Rate 57 Respiratory 18 17 16 Rate Blood Pressure 110/62 (mmHg) O2 Sat by Pulse 96 Oximetry 04/28/18 04/28/18 04/28/18 07:00 07:01 07:50 Temperature 100 F Pulse Rate 67 65 Respiratory 23 19 Rate Blood Pressure 116/65 (mmHg) O2 Sat by Pulse 95 94 Oximetry 04/28/18 04/28/18 04/28/18 08:00 08:01 09:00 Temperature Pulse Rate 79 65 76 Respiratory 17 19 20 Rate Blood Pressure 121/88 107/67 (mmHg) O2 Sat by Pulse 93 91 96 Oximetry 04/28/18 04/28/18 04/28/18 09:01 10:00 10:01 Temperature Pulse Rate 75 76 76 Respiratory 16 17 27 Rate Blood Pressure 127/73 (mmHg) O2 Sat by Pulse 96 96 96 Oximetry 04/28/18 04/28/18 04/28/18 10:50 11:00 11:23 Temperature 99.6 F Pulse Rate 74 Respiratory 14 25 Rate Blood Pressure 127/73 (mmHg) O2 Sat by Pulse 97 Oximetry 04/28/18 04/28/18 12:00 12:03 Temperature Pulse Rate 73 71 Respiratory 23 19 Rate Blood Pressure 80/49 143/64 (mmHg) O2 Sat by Pulse 92 96 Oximetry Oxygen Devices in Use Now: Nasal Cannula Appearance: Elderly lady lying in bed in NAD. Eyes: No Scleral Icterus Ears/Nose/Mouth/Throat: Mucous Membranes Moist Neck: Trachea Midline Respiratory: Symmetrical Chest Expansion and Respiratory Effort, Clear to Auscultation Cardiovascular: RRR - Normal S1 and S2 Abdominal: NL Sounds; No Tenderness; No Distention Extremities: No Edema Neurological: - - AAOx2 (self and place), moves all 4 extremities, minimal LUE weakness Result Diagrams: 04/28/18 05:30 04/28/18 05:30 Assess/Plan/Problems-Billing Assessment: Mrs Neumann is an 87 year old female with PMH of hyperlipidemia, carotid disease , dementia, presented with acute right parietal stroke, status post tPA. - Patient Problems (1) CVA (cerebral vascular accident) Comment: - S/p tPA 04/26/18 with improvement of symptoms. - Follow up CT head revealed evolving right parietal infarct with subtle linear hypodensities that may represent early petechial hemorrhage. - Neuro input appreciated - plan for MRI brain today, hold antiplatelets for now. - Speech pathology input appreciated - can regular consistency diet and thin liquids. - Allow permissive HTN - treat SBP>180 and DBP>100. - LDL is 74 - resume Atorvastatin. - Echo reviewed. 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 - Continue neuro checks. (2) Type 2 diabetes mellitus Comment: - Patient meets criteria for diabetes with random glucose 221 and Hb A1c 7.1 - will resume diet, monitor FS and cover with Lispro SS. May be able to control it with diet only. (3) Dementia Comment: - Continue supportive care. (4) Hypertension Comment: - Permissive HTN - will treat if SBP>180 or DBP>100. - Off Nicardipine drip. - Due to Labetalol shortage will treat with Hydralazine PRN. (5) Dyslipidemia Comment: - Continue Atorvastatin. (6) DVT prophylaxis Comment: - SCDs Status and Disposition: Inpatient.
[2018-04-28] MEDS ORDERED: Dextrose 50% Syringe 50 ML* 25 GM/50 ML SYRINGE IV PUSH PRN (12:58)
[2018-04-28] MEDS ORDERED: Labetalol IV* 5 MG/ML 20 ML VIAL IV PUSH PRN (13:01)
[2018-04-28] MEDS: Insulin LISPRO* 1 UNITS UNIT SUBCUT SCH (17:50)
[2018-04-28] MEDS: Acetaminophen TAB* 325 MG PO PRN (18:02)
[2018-04-28] MEDS: Atorvastatin* 40 MG TAB PO SCH (18:02)
[2018-04-28] MEDS: hydrALAZINE IV* 20 MG/ML VIAL IV SLOW PU PRN (18:03)
--- NOTE | 2018-04-29 07:37 | PN ---
Subjective Date of Service: 04/29/18 Length of Stay: 3 Days Interval History: No new issues overnight. She has not slept much but has been pleasant and is easy to reorient. She has been getting up with assistance and walker and ambulating to the commode. She has been continent. She passed her swallowing eval and has been eating without difficulty. Nurse notes that she had to receive Hydralazine last night one time due to SBP > 180 but overall, her blood pressure have been within range with several readings low, a few of which may have been due to technical issues, she does not like to have her blood pressure taken and is often non-compliant. I had a good conversation face to face with her daughter yesterday and updated on her status. MRI: Reviewed: Area of right temporal/parietal/occipital multifocal stroke with some intraparenchymal hemorrhage, looks slightly enlarged from prior scan. No shift. Echo: EF > 65%, no acute issues or concerns. Family History: Unchanged from Admission Social History: Unchanged from Admission Past Medical History: Unchanged from Admission Objective Active Medications: Acetaminophen (Tylenol Tab*) 650 mg PO Q6H PRN PRN Reason: pain/fever Last Admin: 04/28/18 18:02 Dose: 650 mg Atorvastatin Calcium (Lipitor*) 40 mg PO QPM [facility] Last Admin: 04/28/18 18:02 Dose: 40 mg Dextrose (D50w Syringe 50 Ml*) 12.5 gm IV PUSH .FOR FS < 60 - SS PRN PRN Reason: FS < 60 Hydralazine HCl (Apresoline Iv*) 5 mg IV SLOW PU Q6H PRN PRN Reason: SBP>180 and/or DBP>100 Last Admin: 04/28/18 18:03 Dose: 5 mg Insulin Human Lispro (Humalog*) 0 units SUBCUT AC [facility]; Protocol Last Admin: 04/28/18 17:50 Dose: Not Given Prednisolone Acetate (Pred Forte 1%*) 1 drop LEFT EYE DAILY [facility] Last Admin: 04/28/18 09:49 Dose: 1 drop Vital Signs 04/28/18 04/28/18 04/28/18 07:50 08:00 08:01 Temperature 100 F Pulse Rate 79 65 Respiratory 17 19 Rate Blood Pressure 121/88 (mmHg) O2 Sat by Pulse 93 91 Oximetry 04/28/18 04/28/18 04/28/18 09:00 09:01 10:00 Temperature Pulse Rate 76 75 76 Respiratory 20 16 17 Rate Blood Pressure 107/67 (mmHg) O2 Sat by Pulse 96 96 96 Oximetry 04/28/18 04/28/18 04/28/18 10:01 10:50 11:00 Temperature Pulse Rate 76 74 Respiratory 27 14 25 Rate Blood Pressure 127/73 127/73 (mmHg) O2 Sat by Pulse 96 97 Oximetry 04/28/18 04/28/18 04/28/18 11:23 12:00 12:03 Temperature 99.6 F Pulse Rate 73 71 Respiratory 23 19 Rate Blood Pressure 80/49 143/64 (mmHg) O2 Sat by Pulse 92 96 Oximetry 04/28/18 04/28/18 04/28/18 13:00 13:01 14:00 Temperature Pulse Rate 75 70 87 Respiratory 18 20 18 Rate Blood Pressure 123/70 119/73 (mmHg) O2 Sat by Pulse 94 94 96 Oximetry 04/28/18 04/28/18 04/28/18 14:01 15:00 15:51 Temperature Pulse Rate 84 86 83 Respiratory 17 23 22 Rate Blood Pressure 168/76 164/97 (mmHg) O2 Sat by Pulse 95 96 97 Oximetry 04/28/18 04/28/18 04/28/18 16:00 16:01 17:00 Temperature 99.1 F Pulse Rate 84 85 Respiratory 19 25 24 Rate Blood Pressure 168/87 (mmHg) O2 Sat by Pulse 97 98 Oximetry 04/28/18 04/28/18 04/28/18 17:13 17:54 17:56 Temperature Pulse Rate 85 93 92 Respiratory 20 22 Rate Blood Pressure 207/114 162/102 (mmHg) O2 Sat by Pulse 96 96 97 Oximetry 04/28/18 04/28/18 04/28/18 18:00 18:01 18:19 Temperature Pulse Rate 94 91 94 Respiratory 22 20 18 Rate Blood Pressure 170/105 126/83 (mmHg) O2 Sat by Pulse 97 96 96 Oximetry 04/28/18 04/28/18 04/28/18 19:00 19:02 19:46 Temperature 98.4 F Pulse Rate 87 80 Respiratory 22 23 Rate Blood Pressure 93/48 (mmHg) O2 Sat by Pulse 81 96 Oximetry 04/28/18 04/28/18 04/28/18 20:00 21:00 21:02 Temperature Pulse Rate 86 85 83 Respiratory 16 15 22 Rate Blood Pressure 113/81 (mmHg) O2 Sat by Pulse 91 88 95 Oximetry 04/28/18 04/28/18 04/28/18 22:00 22:01 23:00 Temperature Pulse Rate 85 83 105 Respiratory 18 26 Rate Blood Pressure 116/71 (mmHg) O2 Sat by Pulse 95 95 84 Oximetry 04/28/18 04/28/18 04/28/18 23:02 23:07 23:49 Temperature Pulse Rate 91 93 78 Respiratory 19 13 22 Rate Blood Pressure 67/26 92/61 (mmHg) O2 Sat by Pulse 95 95 93 Oximetry 04/28/18 04/29/18 04/29/18 23:58 00:00 00:26 Temperature 98.7 F Pulse Rate 74 84 Respiratory 18 32 Rate Blood Pressure 152/81 (mmHg) O2 Sat by Pulse 93 94 Oximetry 04/29/18 04/29/18 04/29/18 01:00 02:00 03:00 Temperature Pulse Rate Respiratory 19 17 19 Rate Blood Pressure (mmHg) O2 Sat by Pulse Oximetry 04/29/18 04/29/18 04/29/18 03:31 03:33 03:36 Temperature 98.0 F Pulse Rate Respiratory 20 21 Rate Blood Pressure 140/83 (mmHg) O2 Sat by Pulse Oximetry 04/29/18 04/29/18 04/29/18 04:00 05:00 05:25 Temperature Pulse Rate 66 79 Respiratory 17 12 12 Rate Blood Pressure (mmHg) O2 Sat by Pulse 98 96 Oximetry 04/29/18 04/29/18 06:00 06:01 Temperature Pulse Rate 85 Respiratory 26 Rate Blood Pressure 152/92 (mmHg) O2 Sat by Pulse 97 Oximetry Intake and Output Last 24 Hours 04/27/18 04/28/18 04/29/18 04/30/18 06:59 06:59 06:59 06:59 Intake Total 557 1696 1151 Output Total 950 445 780 Balance -393 1251 371 Weight 129 lb 3.054 oz 126 lb 5.198 oz 127 lb 6.835 oz Intake: IV Fluids 510 1696 446 NS (0.9%) 510 1696 446 Medicated IV 47 CC - Nicarpidine/Cardene 47 Oral 705 Output: Urine 950 445 780 Other: Estimated Void Medium Medium Medium # Voids 1 1 2 Oxygen Devices in Use Now: None Neurology Exam: General: Awake, responsive, pleasant HEENT: Normocephalic/atraumatic, sclera anicteric, mucous membranes moist Neck: Supple, no bruits Chest: Clear to auscultation bilaterally Cardiovascular: Regular rate and rhythm without murmurs, rubs, gallops Abdomen: Soft, nontender/nondistended Extremities: No clubbing, cyanosis, or edema Neurological Findings: Oriented to person, "[place]" for city and "" for year. When asked if this was 1918 or 2018 she was unable to answer. Otherwise not oriented. Speech: fluent without dysarthria, Following commands Cranial Nerve: Opens eyes but closes immediately when a light is shined, cannot forcefully keep her eyes open but pupils appear symmetric, EOM grossly intact with no nystagmus or ptosis, facial asymmetry of the left lower face appears improved, VFF grossly full to confrontation, tongue is midline, palate is symmetric Motor: Moving all extremities antigravity, with good resistance, some mild LUE weakness in publisher assistant Sensation: W/D to pain, LT appears intact throughout. No obvious neglect Deep Tendon Reflex: Down throughout, symmetric, w/d Babinski No resting or action tremors Gait: In bed but does ambulate with full assist. Result Diagrams: 04/28/18 05:30 04/28/18 05:30 Assessment/Plan Assessment: 87 year old female with a history of hyperlipidemia, carotid disease, dementia, presented with acute right parietal/temp/occ stroke, status post tpa with some hemorrhagic conversion, overall doing well with slowly improving symptoms. Remains confused but no significant dysarthria. Demenita appears to be at baseline. 1. Imaging shows intraparenchymal hemorrhage, plan to repeat CT this am and if stable I think it is ok to transfer to floor with frequent monitoring. Timing of ASA is unclear pending study. I would not treat with DAPT given bleed. 2. Passed swallowing eval, advance diet as tolerated. 3. We can start to tighten blood pressure parameters and add back in meds slowly, as necessary. I would continue to actively treat for SBP > 180, DBP > 100 4. Taking PO, back on statin 6. PT/ST 7. Carotid disease, non-critical, will need to follow this as an outpatient 8. Dementia: Plan to more fully evaluate as an outpatient once stable and baseline, no meds for now 8. Use SCDs for DVT prophylaxis 9. Likely to floor today 10. Plan for o/p follow up on discharge in 8-12 weeks. I Will plan to speak with family and update later today.
[2018-04-29] MEDS: amLODIPine TAB* 5 MG PO SCH (08:19)
[2018-04-29] MEDS: Insulin LISPRO* 1 UNITS UNIT SUBCUT SCH ×3 (08:19→17:54)
[2018-04-29] MEDS: prednisoLONE 1% OPHTH.SUSP* 5 ML OPHTH.SUSP LEFT EYE SCH (08:19)
--- NOTE | 2018-04-29 12:50 | ECHO ---
Patient: ADA LUNDBERG [facility] [place] Rec#: [id number] : 1930 Date: 04/29/2018 Age: 87y Height: 163 cm / 64.2 in Weight: 58 kg / 127.8 lbs Sex: F BSA: 1.62 Room#: ICU 3 Admit Date#: 04/26/2018 Type: Inpatient Referring: Cherrie Munoz MD Reading: Rolf German MD Conference Services Coordinator: Rukhsana Moya RD,[facility] Transthoracic Echocardiogram Indication: CVA BP: 123/75 HR: 76 Rhythm: NSR Findings History: LIMITED ECHO. BUBBLE STUDY ONLY Technical Comments: The study quality is fair. Right Atrium: The bubble study is negative. A patent foramen ovale is not demonstrated by agitated contrast. Contrast: Intravenous agitated saline contrast was used to assess intracardiac shunting. Conclusions The bubble study is negative. A patent foramen ovale is not demonstrated by agitated contrast. See full echo report 04/28/18
--- NOTE | 2018-04-29 15:16 | PN ---
Subjective Date of Service: 04/29/18 Interval History: HOSPITALIST PROGRESS NOTE Patient seen and examined at bedside. Care reviewed and d/w Deysi Moreno RN. She seems to be doing better today. More alert, less confusion. Was able to ambulate to commode with one assist. Offers no complaints. Family History: Unchanged from Admission Social History: Unchanged from Admission Past Medical History: Unchanged from Admission Objective Active Medications: Acetaminophen (Tylenol Tab*) 650 mg PO Q6H PRN PRN Reason: pain/fever Last Admin: 04/28/18 18:02 Dose: 650 mg Amlodipine Besylate (Norvasc Tab*) 2.5 mg PO DAILY [facility] Last Admin: 04/29/18 08:19 Dose: 2.5 mg Atorvastatin Calcium (Lipitor*) 40 mg PO QPM [facility] Last Admin: 04/28/18 18:02 Dose: 40 mg Dextrose (D50w Syringe 50 Ml*) 12.5 gm IV PUSH .FOR FS < 60 - SS PRN PRN Reason: FS < 60 Hydralazine HCl (Apresoline Iv*) 5 mg IV SLOW PU Q6H PRN PRN Reason: SBP>180 and/or DBP>100 Last Admin: 04/28/18 18:03 Dose: 5 mg Insulin Human Lispro (Humalog*) 0 units SUBCUT AC [facility]; Protocol Last Admin: 04/29/18 12:15 Dose: Not Given Prednisolone Acetate (Pred Forte 1%*) 1 drop LEFT EYE DAILY [facility] Last Admin: 04/29/18 08:19 Dose: 1 drop Vital Signs - 8 hr 04/29/18 04/29/18 04/29/18 08:00 08:05 08:08 Temperature 99 F Pulse Rate Respiratory 20 16 Rate Blood Pressure 123/75 (mmHg) O2 Sat by Pulse Oximetry 04/29/18 04/29/18 04/29/18 09:00 09:01 10:00 Temperature Pulse Rate 83 83 Respiratory 20 27 16 Rate Blood Pressure 143/81 (mmHg) O2 Sat by Pulse 97 96 Oximetry 04/29/18 04/29/18 04/29/18 10:01 11:00 12:00 Temperature 99.9 F Pulse Rate 90 Respiratory 19 15 19 Rate Blood Pressure 117/66 (mmHg) O2 Sat by Pulse 96 Oximetry 04/29/18 04/29/18 04/29/18 13:00 13:03 14:00 Temperature Pulse Rate Respiratory 20 17 18 Rate Blood Pressure (mmHg) O2 Sat by Pulse Oximetry Oxygen Devices in Use Now: None Appearance: Elderly lady lying in bed in NAD. Eyes: No Scleral Icterus Ears/Nose/Mouth/Throat: Mucous Membranes Moist Neck: Trachea Midline Respiratory: Symmetrical Chest Expansion and Respiratory Effort, Clear to Auscultation Cardiovascular: RRR - Normal S1 and S2 Extremities: No Edema Result Diagrams: 04/28/18 05:30 04/28/18 05:30 Assess/Plan/Problems-Billing Assessment: Mrs Neumann is an 87 year old female with PMH of hyperlipidemia, carotid disease , dementia, presented with acute right parietal stroke, status post tPA. - Patient Problems (1) CVA (cerebral vascular accident) Comment: - S/p tPA 04/26/18 with improvement of symptoms, but complicated by bleed. - Follow up CT head revealed evolving right parietal infarct with subtle linear hypodensities that may represent early petechial hemorrhage. - MRI brain showed increased signal at the cortex of the right temporal and parietal lobes. There is scattered foci of increased signal on diffusion- weighted image at the right occipital lobe as well. On susceptibility weighted imaging there is absence of signal at the right temporal and parietal lobes consistent with intraparenchymal hemorrhage. - Follow up CT brain today is stable - d/w Neuro - no antiplatelets for now; transfer to Telemetry floor. - Speech pathology input appreciated - can have regular consistency diet and thin liquids. - Will start further BP control - add low dose amlodipine and monitor. - LDL is 74 - continue Atorvastatin. - Echo reviewed - bubble study is negative. 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 - Continue neuro checks, but change to q4h. (2) Type 2 diabetes mellitus Comment: - Patient meets criteria for diabetes with random glucose 221 and Hb A1c 7.1 - will resume diet, monitor FS and cover with Lispro SS. May be able to control it with diet only. (3) Dementia Comment: - Continue supportive care. (4) Hypertension Comment: - Start low dose amlodipine and monitor. (5) Dyslipidemia Comment: - Continue Atorvastatin. (6) DVT prophylaxis Comment: - SCDs (7) DNR (do not resuscitate) Status and Disposition: Inpatient. Daughter updated at bedside and interested in Palliative care as family is not interested in aggressive/invasive measures.
[2018-04-29] MEDS: Acetaminophen TAB* 325 MG PO PRN (15:59)
[2018-04-29] MEDS: hydrALAZINE IV* 20 MG/ML VIAL IV SLOW PU PRN (15:59)
[2018-04-29] MEDS: Atorvastatin* 40 MG TAB PO SCH (17:56)
--- NOTE | 2018-04-30 07:05 | PN ---
Subjective Date of Service: 04/30/18 Length of Stay: 4 Days Interval History: No new issues ovenight. Remains pleasantly confused. I spoke with the nurse taking care of here today who received signout. No issues. She does ambulate with assist. She seems to be swallowing ok. Denies any complaints. Remains weaker on the left side, mild. Denies headaches or vision changes. She is a poor historian. Per the nurse, her digital media representative feels she is not quite back to baseline prior to hospitalization. She is not currently on antiplatlet Bubble Study: Negative CT Head: Impression: Again noted subacute infarct of right Temp lobe with gyriform high attenuation c /w petechial hemorrhage in setting of cortical laminar necrosis. No dedra parenchymal hemorrhage. No significant change from previous Assess/Plan/Problems-Billing Assessment: Mrs Neumann is an 87 year old female with PMH of hyperlipidemia, carotid disease , dementia, presented with acute right parietal stroke, status post tPA. Family History: Unchanged from Admission Social History: Unchanged from Admission Past Medical History: Unchanged from Admission Objective Active Medications: Acetaminophen (Tylenol Tab*) 650 mg PO Q6H PRN PRN Reason: pain/fever Last Admin: 04/29/18 15:59 Dose: 650 mg Amlodipine Besylate (Norvasc Tab*) 2.5 mg PO DAILY [facility] Last Admin: 04/29/18 08:19 Dose: 2.5 mg Atorvastatin Calcium (Lipitor*) 40 mg PO QPM [facility] Last Admin: 04/29/18 17:56 Dose: 40 mg Dextrose (D50w Syringe 50 Ml*) 12.5 gm IV PUSH .FOR FS < 60 - SS PRN PRN Reason: FS < 60 Hydralazine HCl (Apresoline Iv*) 5 mg IV SLOW PU Q6H PRN PRN Reason: SBP>180 and/or DBP>100 Last Admin: 04/29/18 15:59 Dose: 5 mg Insulin Human Lispro (Humalog*) 0 units SUBCUT AC [facility]; Protocol Last Admin: 04/29/18 17:54 Dose: Not Given Prednisolone Acetate (Pred Forte 1%*) 1 drop LEFT EYE DAILY [facility] Last Admin: 04/29/18 08:19 Dose: 1 drop Vital Signs 04/29/18 04/29/18 04/29/18 07:00 08:00 08:05 Temperature 99 F Pulse Rate 91 Respiratory 15 20 Rate Blood Pressure 123/75 (mmHg) O2 Sat by Pulse 97 Oximetry 04/29/18 04/29/18 04/29/18 08:08 09:00 09:01 Temperature Pulse Rate 83 83 Respiratory 16 20 27 Rate Blood Pressure 143/81 (mmHg) O2 Sat by Pulse 97 96 Oximetry 04/29/18 04/29/18 04/29/18 10:00 10:01 11:00 Temperature Pulse Rate 90 Respiratory 16 19 15 Rate Blood Pressure 117/66 (mmHg) O2 Sat by Pulse 96 Oximetry 04/29/18 04/29/18 04/29/18 12:00 13:00 13:03 Temperature 99.9 F Pulse Rate Respiratory 19 20 17 Rate Blood Pressure (mmHg) O2 Sat by Pulse Oximetry 04/29/18 04/29/18 04/29/18 14:00 14:14 15:20 Temperature 98.0 F 98.5 F Pulse Rate 78 79 Respiratory 18 18 16 Rate Blood Pressure 127/76 184/75 (mmHg) O2 Sat by Pulse 99 100 Oximetry 04/29/18 04/29/18 04/29/18 18:43 19:50 23:57 Temperature 98 F 97.7 F 98.6 F Pulse Rate 78 107 89 Respiratory 18 16 16 Rate Blood Pressure 127/76 131/106 133/73 (mmHg) O2 Sat by Pulse 99 98 94 Oximetry 04/30/18 03:24 Temperature 97.7 F Pulse Rate 94 Respiratory 16 Rate Blood Pressure 132/93 (mmHg) O2 Sat by Pulse 93 Oximetry Intake and Output Last 24 Hours 04/27/18 04/28/18 04/29/18 04/30/18 06:59 06:59 06:59 06:59 Intake Total 557 1696 1151 460 Output Total 950 445 780 450 Balance -393 1251 371 10 Weight 129 lb 3.054 oz 126 lb 5.198 oz 127 lb 6.835 oz Intake: IV Fluids 510 1696 446 NS (0.9%) 510 1696 446 Medicated IV 47 CC - Nicarpidine/Cardene 47 Oral 705 460 Output: Urine 950 445 780 375 [place] 75 Other: Estimated Void Medium Medium Medium # Voids 1 1 2 Oxygen Devices in Use Now: None Neurology Exam: General: HEENT: Normocephalic/atraumatic, sclera anicteric, mucous membranes moist Neck: Supple Chest: Clear to auscultation bilaterally Cardiovascular: Regular rate and rhythm without murmurs Abdomen: Soft, nontender/nondistended Extremities: No clubbing, cyanosis, or edema Neurological Findings: Awake, Alert, Oriented person only. Speech: fluent without dysarthria. Answers questions and follows commands Cranial Nerve: PEERL, EOM intact, VFF, no nystagmus, face symmetric bilaterally (left facial droop appears improved), hearing diminished bilaterally palate elevates symmetrically, tongue midline Motor: Mild weakness left upper and lower extremities with decreased party plan demonstrator on the left. Difficult to assess party plan demonstrator. Sensation: intact to LT/PP bilaterally upper and lower extremities Deep Tendon Reflex: 1+ symmetric in the upper/lower extremities, Babinski - equivocal No resting or action tremor Gait: She does ambulate with assist. I did not ambulate today Result Diagrams: 04/28/18 05:30 04/28/18 05:30 Microbiology and Other Data: Microbiology 04/27/18 18:58 Urine Culture - Final Urine Assessment/Plan Assessment: 87 year old female with a history of hyperlipidemia, carotid disease, dementia, presented with acute right parietal/temp/occ stroke, status post tpa with some hemorrhagic conversion, overall doing well with slowly improving symptoms. Remains confused but no significant dysarthria. Demenita appears to be at baseline. 1. Repeat CT shows some petechial hemorrhage, no intraparenchymal bleed. Stable from day prior. I think it is ok to restart ASA at this point given the stable nature of her CT. I would not treat with DAPT therapy given bleeding. 2. Continue Statin 3. BP control: continue to titrate meds to normalize 4. Echo: bubble negative 5. Diabetes: Watch diet. Insulin as necessary. Will need to be followed closely by PCP 5. Diet. Evaluated by speech, continue to advance as tolerated 6. Carotid disease: this will need to be followed senior living outpatient 7. PT/ST. Will need some outpatient PT 8. Dementia: outpatient workup. No meds for now 9. SCDs for DVT prophylaxis 10. Discharge planning I will speak with family today and plan to sign off afterwards. I Remain available with any new issues or concerns. Please arrange for outpatient follow up with me in 12 weeks.
[2018-04-30] MEDS: Insulin LISPRO* 1 UNITS UNIT SUBCUT SCH ×2 (08:10→12:27)
[2018-04-30] MEDS: amLODIPine TAB* 5 MG PO SCH (08:24)
[2018-04-30] MEDS: Aspirin 81 mg CHEW TAB* 81 MG TAB.CHEW PO SCH (08:24)
[2018-04-30] MEDS: prednisoLONE 1% OPHTH.SUSP* 5 ML OPHTH.SUSP LEFT EYE SCH (10:11)
--- NOTE | 2018-04-30 12:29 | CONSULT ---
Palliative / Hospice Consult Ordering Provider: Cherrie Reed - PCP-Jun - Subjective Code Status: DNR Advance Directives Location: No Advance Directives MOLST Part A Completed: Yes - By Dr. Angel Luis ODONNELL Part E Completed:: Yes - by Dr. Sharma with daughter Lavonne - History or Present Illness History or Present Illness: 87 yo female with dementia who was brought to ER by daughter after having an episode of staring off into the distance and L sided weakness. In ER she was given tpa for stroke. Her other medical problems include hyperlipidemia, carotid artery disease, TIA, hypertension, DM, PVD & depression. She lives at home and her was her primary branch sales manager up until July 2017 when he had a stroke and is now a resident of [facility]. Their daughter(Lavonne) has been caring for her mom since but they are looking into placing her at [facility] because daughter works mcat tutor. There are several other siblings who are out of the area. Family has elected to not be aggressive with their mom's care because they don't want to prolong her life the way it is currently. Lavonne is her HCP. In fact, after her hospitalization 07/08/16 for leg swelling they were not treating her diabetes with supervision of her PCP. This hospitalization her CT brain showed R parietal infart mod size, ECHO 65% with mild-mod mitral regurge, 59% DAVID stenosis and 64% LICA, CXR showed R basilar atelectasis, tprot 6.2 alb 3.5 BUN/Cr 14/.75 egfr 72.8. Her dementia is in the moderately severe stage she does still use the toilet but needs assistance and is still continent. Her KPS 50%,PPS 50%. All history is from the daughter and medical records pt is unable to contribute. Lab Values: Abnormal Lab Results 04/29/18 04/29/18 04/30/18 13:10 17:12 07:50 POC Glucose (mg/dL) 124 H 122 H 121 H 04/30/18 11:57 POC Glucose (mg/dL) 171 H Laboratory Last Values WBC 10.6 10^3/ul (3.5-10.8) 04/28/18 05:30 RBC 4.89 10^6/ul (4.00-5.40) 04/28/18 05:30 Hgb 13.7 g/dl (12.0-16.0) 04/28/18 05:30 Hct 42 % (35-47) 04/28/18 05:30 MCV 86 fL (80-97) 04/28/18 05:30 MCH 28 pg (27-31) 04/28/18 05:30 MCHC 33 g/dl (31-36) 04/28/18 05:30 RDW 15 % (10.5-15) 04/28/18 05:30 Plt Count 187 10^3/ul (150-450) 04/28/18 05:30 MPV 9.9 fL (7.4-10.4) 04/28/18 05:30 Neut % (Auto) 77.7 % 04/28/18 05:30 Lymph % (Auto) 13.3 % 04/28/18 05:30 [place] % (Auto) 7.3 % 04/28/18 05:30 Eos % (Auto) 0.6 % 04/28/18 05:30 Baso % (Auto) 1.1 % 04/28/18 05:30 Absolute Neuts (auto) 8.2 10^3/ul (1.5-7.7) H 04/28/18 05:30 Absolute Lymphs (auto) 1.4 10^3/ul (1.0-4.8) 04/28/18 05:30 Absolute Monos (auto) 0.8 10^3/ul (0-0.8) 04/28/18 05:30 Absolute Eos (auto) 0.1 10^3/ul (0-0.6) 04/28/18 05:30 Absolute Basos (auto) 0.1 10^3/ul (0-0.2) 04/28/18 05:30 Absolute Nucleated RBC 0 10^3/ul 04/28/18 05:30 Nucleated RBC % 0 04/28/18 05:30 INR (Anticoag Therapy) 0.90 (0.77-1.02) 04/26/18 16:58 APTT 38.8 seconds (26.0-36.3) H 04/26/18 16:58 Sodium 136 mmol/L (135-145) 04/28/18 05:30 Potassium 3.5 mmol/L (3.5-5.0) 04/28/18 05:30 Chloride 104 mmol/L (101-111) 04/28/18 05:30 Carbon Dioxide 24 mmol/L (22-32) 04/28/18 05:30 Anion Gap 8 mmol/L (2-11) 04/28/18 05:30 BUN 14 mg/dL (6-24) 04/28/18 05:30 Creatinine 0.75 mg/dL (0.51-0.95) 04/28/18 05:30 Est GFR ( Amer) 88.0 (>60) 04/28/18 05:30 Est GFR (Non-Af Amer) 72.8 (>60) 04/28/18 05:30 BUN/Creatinine Ratio 18.7 (8-20) 04/28/18 05:30 Glucose 81 mg/dL (70-100) 04/28/18 05:30 POC Glucose (mg/dL) 171 mg/dL (70-100) H 04/30/18 11:57 Hemoglobin A1c 7.1 % (4.0-5.6) H 04/28/18 05:30 Lactic Acid 1.8 mmol/L (0.5-2.0) 04/26/18 16:58 Calcium 8.5 mg/dL (8.6-10.3) L 04/28/18 05:30 Total Bilirubin 1.10 mg/dL (0.2-1.0) H 04/26/18 16:58 AST 17 U/L (13-39) 04/26/18 16:58 ALT 10 U/L (7-52) 04/26/18 16:58 Alkaline Phosphatase 99 U/L (34-104) 04/26/18 16:58 Troponin I 0.01 ng/mL (<0.04) 04/26/18 16:58 Total Protein 6.2 g/dL (6.4-8.9) L 04/26/18 16:58 Albumin 3.5 g/dL (3.2-5.2) 04/26/18 16:58 Globulin 2.7 g/dL (2-4) 04/26/18 16:58 Albumin/Globulin Ratio 1.3 (1-3) 04/26/18 16:58 Triglycerides 102 mg/dL 04/28/18 05:30 Cholesterol 132 mg/dL 04/28/18 05:30 LDL Cholesterol 74 mg/dL 04/28/18 05:30 HDL Cholesterol 37.2 mg/dL 04/28/18 05:30 Urine Color Yellow 04/27/18 18:58 Urine Appearance Clear 04/27/18 18:58 Urine pH 6.0 (5-9) 04/27/18 18:58 Ur Specific [place] 1.026 (1.010-1.030) 04/27/18 18:58 Urine Protein Negative (Negative) 04/27/18 18:58 Urine Ketones 1+ (Negative) A 04/27/18 18:58 Urine Blood 1+ (Negative) A 04/27/18 18:58 Urine Nitrate Negative (Negative) 04/27/18 18:58 Urine Bilirubin Negative (Negative) 04/27/18 18:58 Urine Urobilinogen Positive (Negative) A 04/27/18 18:58 Ur Leukocyte Esterase Negative (Negative) 04/27/18 18:58 Urine WBC (Auto) Trace(0-5/hpf) (Absent) 04/27/18 18:58 Urine RBC (Auto) 2+(6-10/hpf) (Absent) A 04/27/18 18:58 Ur Squamous Epith Cells Present (Absent) A 04/27/18 18:58 Urine Bacteria Absent (Absent) 04/27/18 18:58 Urine Glucose Negative (Negative) 04/27/18 18:58 Blood Type A Positive 04/26/18 16:58 Antibody Screen Negative 04/26/18 16:58 - Objective Active Medications: Acetaminophen (Tylenol Tab*) 650 mg PO Q6H PRN PRN Reason: pain/fever Last Admin: 04/29/18 15:59 Dose: 650 mg Amlodipine Besylate (Norvasc Tab*) 2.5 mg PO DAILY [facility] Last Admin: 04/30/18 08:24 Dose: 2.5 mg Aspirin (Aspirin 81 Mg Chew Tab*) 81 mg PO DAILY [facility] Last Admin: 04/30/18 08:24 Dose: 81 mg Atorvastatin Calcium (Lipitor*) 40 mg PO QPM [facility] Last Admin: 04/29/18 17:56 Dose: 40 mg Dextrose (D50w Syringe 50 Ml*) 12.5 gm IV PUSH .FOR FS < 60 - SS PRN PRN Reason: FS < 60 Hydralazine HCl (Apresoline Iv*) 5 mg IV SLOW PU Q6H PRN PRN Reason: SBP>180 and/or DBP>100 Last Admin: 04/29/18 15:59 Dose: 5 mg Insulin Human Lispro (Humalog*) 0 units SUBCUT AC [facility]; Protocol Last Admin: 04/30/18 08:10 Dose: Not Given Prednisolone Acetate (Pred Forte 1%*) 1 drop LEFT EYE DAILY [facility] Last Admin: 04/30/18 10:11 Dose: 1 drop Vital Signs: Vital Signs: Temp Pulse Resp BP Pulse Ox 97.9 F 73 18 134/46 99 04/30/18 10:33 04/30/18 10:33 04/30/18 10:33 04/30/18 10:33 04/30/18 10:33 Patient Weight: Weight 57.8 kg Intake and Output: Intake & Output 04/28/18 04/29/18 04/30/18 05/01/18 06:59 06:59 06:59 06:59 Intake Total 1696 1151 460 240 Output Total 445 780 450 0 Balance 1251 371 10 240 Weight 57.3 kg 57.8 kg Intake: IV Fluids 1696 446 NS (0.9%) 1696 446 Oral 705 460 240 Output: Urine 445 780 375 0 [place] 75 Other: Estimated Void Medium Medium # Voids 1 2 ADLs: Meal Record Start: 04/26/18 23: 12 Freq: 09,13,18 Status: Complete Protocol: Created 04/26/18 23:12 System (Rec: 04/26/18 23:12 System ICU-M33) Document 04/27/18 18:00 [id number] (Rec: 04/27/18 18:23 [id number] ICU-C15) Document 04/28/18 09:00 [id number] (Rec: 04/28/18 11:49 FWI7943 ICU-C15) Document 04/28/18 13:00 QIJ0950 (Rec: 04/28/18 15:13 CUL4313 ICU-C15) Document 04/28/18 18:00 YCS6846 (Rec: 04/28/18 18:53 MSL2021 ICU-C15) Document 04/29/18 09:00 VWV7705 (Rec: 04/29/18 10:29 DVF6086 ICU-C15) Document 04/29/18 13:00 RJA1137 (Rec: 04/29/18 14:05 TZR2040 ICU-C15) ADLs: Meal Record Start: 04/30/18 05: 40 Freq: Status: Active Protocol: Created 04/30/18 05:40 [id number] (Rec: 04/30/18 05:40 [id number] HOSP-C11) Document 04/30/18 12:02 YVQ5429 (Rec: 04/30/18 12:03 RRN3197 TELE-C03) Intake and Output Start: 04/26/18 17: 02 Freq: Status: Active Protocol: Created 04/26/18 17:02 System (Rec: 04/26/18 17:02 System [id number]-C12) Intake and Output Start: 04/26/18 23: 12 Freq: Q1HR Status: Complete Protocol: Created 04/26/18 23:12 System (Rec: 04/26/18 23:12 System ICU-M33) Document 04/27/18 00:43 [id number] (Rec: 04/27/18 00:44 RYD0029 ICU-M33) Document 04/27/18 00:53 HFU7079 (Rec: 04/27/18 00:53 ZBQ6981 ICU-C12) Document 04/27/18 01:31 KFU0380 (Rec: 04/27/18 01:31 FJO2669 ICU-M33) Document 04/27/18 01:54 QKJ5934 (Rec: 04/27/18 01:54 MPK2595 ICU-M33) Document 04/27/18 03:11 VNG9182 (Rec: 04/27/18 03:11 LUF4333 ICU-C12) Document 04/27/18 04:00 JAA0025 (Rec: 04/27/18 05:08 OPC7949 ICU-M33) Document 04/27/18 05:00 ZUB3040 (Rec: 04/27/18 05:08 JIF4525 ICU-M33) Document 04/27/18 07:00 NGB5548 (Rec: 04/27/18 07:33 IJF7891 ICU-C15) Document 04/27/18 08:00 BGU4610 (Rec: 04/27/18 08:09 WED5505 ICU-C15) Document 04/27/18 09:00 VHU3419 (Rec: 04/27/18 10:07 UVO0479 ICU-C15) Document 04/27/18 09:00 OPJ9476 (Rec: 04/27/18 15:47 GBX5742 ICU-C06) Document 04/27/18 11:00 QNS6459 (Rec: 04/27/18 11:33 IMI2309 ICU-C15) Document 04/27/18 13:00 IMS4944 (Rec: 04/27/18 13:32 TMY5272 ICU-C15) Document 04/27/18 14:00 MSH3738 (Rec: 04/27/18 14:21 VDD0628 ICU-C15) Document 04/27/18 15:00 OYX2231 (Rec: 04/27/18 15:17 JCU3393 ICU-C15) Document 04/27/18 16:00 YMI6811 (Rec: 04/27/18 16:21 UHV0361 ICU-C15) Document 04/27/18 17:00 YJM6742 (Rec: 04/27/18 17:25 BSD4562 ICU-C15) Document 04/27/18 18:00 IQX6731 (Rec: 04/27/18 18:23 WRA1558 ICU-C15) Document 04/27/18 19:10 MVB2930 (Rec: 04/27/18 20:45 WCE2500 ICU-C12) Document 04/27/18 20:21 TNW4378 (Rec: 04/27/18 20:45 CUS8931 ICU-C12) Document 04/27/18 21:02 XHV0394 (Rec: 04/27/18 21:03 WPR1820 ICU-C12) Document 04/27/18 22:02 RVK5161 (Rec: 04/27/18 22:03 ION2301 ICU-C12) Document 04/27/18 23:10 GXQ2207 (Rec: 04/27/18 23:25 QMS0662 ICU-C12) Document 04/28/18 04:21 JBF8026 (Rec: 04/28/18 04:23 QFO6843 ICU-C12) Document 04/28/18 07:00 XZI8319 (Rec: 04/28/18 10:30 PZM4063 ICU-C15) Document 04/28/18 08:00 GTF0739 (Rec: 04/28/18 11:46 GWF7486 ICU-C15) Document 04/28/18 09:00 BVN7824 (Rec: 04/28/18 11:49 DWK5411 ICU-C15) Document 04/28/18 10:00 GDN4182 (Rec: 04/28/18 11:49 EFG3719 ICU-C15) Document 04/28/18 11:00 IPK4675 (Rec: 04/28/18 11:51 FWH4305 ICU-C15) Document 04/28/18 12:00 EIX5702 (Rec: 04/28/18 12:24 RHP7914 ICU-C15) Document 04/28/18 13:00 ONF3263 (Rec: 04/28/18 15:15 HDR9796 ICU-C15) Document 04/28/18 14:00 VVH3097 (Rec: 04/28/18 15:30 RHR6913 ICU-C15) Document 04/28/18 15:00 AVP5114 (Rec: 04/28/18 15:30 JUL4238 ICU-C15) Document 04/28/18 16:00 GAA2981 (Rec: 04/28/18 16:09 KUP7377 ICU-C15) Document 04/28/18 17:00 ZZR8471 (Rec: 04/28/18 17:52 VAQ0739 ICU-C15) Document 04/28/18 18:00 PBF7556 (Rec: 04/28/18 18:53 GGF5769 ICU-C15) Document 04/28/18 19:46 TVO0964 (Rec: 04/28/18 19:46 PLE7070 ICU-C20) Document 04/28/18 20:00 RED3760 (Rec: 04/28/18 20:22 ABN2936 ICU-C25) Document 04/28/18 22:00 WXX1520 (Rec: 04/28/18 22:17 GOT4740 ICU-C25) Document 04/28/18 23:00 XPI5477 (Rec: 04/28/18 23:49 FXJ8275 ICU-C25) Document 04/29/18 00:03 EDN9066 (Rec: 04/29/18 00:04 DSX2176 ICU-C14) Document 04/29/18 02:00 GLE5830 (Rec: 04/29/18 03:30 ZZU5088 ICU-C25) Document 04/29/18 03:32 IGG5403 (Rec: 04/29/18 03:32 KBZ8912 ICU-C14) Document 04/29/18 05:00 AXP9867 (Rec: 04/29/18 05:25 BLO4798 ICU-C25) Document 04/29/18 05:26 BEK4114 (Rec: 04/29/18 05:26 ACQ9709 ICU-C25) Document 04/29/18 06:05 XZN7327 (Rec: 04/29/18 06:06 RZZ4166 ICU-C25) Document 04/29/18 06:23 MDH8681 (Rec: 04/29/18 06:23 YEI5254 ICU-C25) Document 04/29/18 07:00 ZRO7278 (Rec: 04/29/18 08:38 NIN5395 ICU-C15) Document 04/29/18 08:00 TSJ3991 (Rec: 04/29/18 08:42 RTQ3427 ICU-C15) Document 04/29/18 09:00 ZPH9979 (Rec: 04/29/18 09:25 MPS5795 ICU-C15) Document 04/29/18 10:00 SUK0165 (Rec: 04/29/18 13:03 SXC5400 ICU-C15) Document 04/29/18 11:00 JZV3306 (Rec: 04/29/18 13:03 GNW1754 ICU-C15) Document 04/29/18 12:00 GKX5990 (Rec: 04/29/18 13:23 OEO2029 ICU-C15) Document 04/29/18 13:00 SIN8391 (Rec: 04/29/18 14:04 [id number] ICU-C15) Eyes: No Scleral Icterus Ears/Nose/Mouth/Throat: Mucous Membranes Moist Neck: Trachea Midline Cardiovascular: RRR - Normal S1 and S2 Respiratory: Symmetrical Chest Expansion and Respiratory Effort Abdominal: NL Sounds; No Tenderness; No Distention Extremities: No Edema Neurological: - - AAOx2 (self and place), moves all 4 extremities, minimal LUE weakness - Assessment Assessment: 87 yo female with dementia and new R CVA - Plan Consult Plan (MU): Hospice Plan: Spent long time with daughter discussing discharge options and updating the MOLST form. Educated daughter about hospice option since family doesn't want to keep bringing their mom back to the hospital. They are still deciding between going back home short term or going directly to [facility] whom they have a relationship. Also spoke about getting a referral for hospice so they don't have to take her back to the hospital. They would like her to be comfortable. Did explain that she may not qualify yet but it is still of value to talk to hospice. Her dementia is moderate but she also has CVA disease secondary to carotid disease, HTN, DM and mild -mod regurge on ECHO. Will talk with family again tomorrow when another daughter will be present. - Time On Unit Date of Evaluation: 04/30/18 Hospice Consult Time in: 11:00 Hospice Consult Time Out: 12:30 Hospice Consult Time Total: 90 > 50% of Time Spend In Counseling or Coordinating Care: Yes
[2018-04-30] MEDS: ALPRAZolam TAB* 0.25 MG PO SCH (14:40)
--- NOTE | 2018-04-30 15:52 | PN ---
Progress Note - Progress Note Date of Service: 04/30/18 SOAP: I saw the daughter in the hallway who reports more weakness this afternoon with her left leg. There is also some concern about her vision. The patient remains pleasantly demented does not comply with with examination. She denies any pain. I did speak with PT who is at the beside and they feel she is weaker in the left leg, the left foot is "turning out" and she is having a harder time walking. Vital Signs Temp Pulse Resp BP Pulse Ox 97.9 F 73 17 134/46 99 04/30/18 10:33 04/30/18 10:33 04/30/18 14:40 04/30/18 10:33 04/30/18 10:33 Acetaminophen (Tylenol Tab*) 650 mg PO Q6H PRN PRN Reason: pain/fever Last Admin: 04/29/18 15:59 Dose: 650 mg Alprazolam (Xanax Tab*) 0.25 mg PO 1300 [facility] Last Admin: 04/30/18 14:40 Dose: 0.25 mg Alprazolam (Xanax Tab*) 0.5 mg PO BEDTIME [facility] Amlodipine Besylate (Norvasc Tab*) 2.5 mg PO DAILY [facility] Last Admin: 04/30/18 08:24 Dose: 2.5 mg Aspirin (Aspirin 81 Mg Chew Tab*) 81 mg PO DAILY [facility] Last Admin: 04/30/18 08:24 Dose: 81 mg Atorvastatin Calcium (Lipitor*) 40 mg PO QPM [facility] Last Admin: 04/29/18 17:56 Dose: 40 mg Hydralazine HCl (Apresoline Iv*) 5 mg IV SLOW PU Q6H PRN PRN Reason: SBP>180 and/or DBP>100 Last Admin: 04/29/18 15:59 Dose: 5 mg Prednisolone Acetate (Pred Forte 1%*) 1 drop LEFT EYE DAILY [facility] Last Admin: 04/30/18 10:11 Dose: 1 drop On exam, she is having more difficulty ambulating. The left foot is turned outward and she is not lifting the leg. She does follow simple commands. PERRL , EOM appear intact. It is very difficult to tell if she is having some left sided visual loss. She does blink to confrontation but would not recognize my finger with confrontational exam. She is unable to provide reliable feedback. Her CT and MRI scans have been stable but she does seem to have an objective change on exam. My plan is to repeat CT scan today to look for any worsening hemorrhage or mass effect.
[2018-04-30] MEDS: Atorvastatin* 40 MG TAB PO SCH (17:40)
--- NOTE | 2018-04-30 18:02 | PN ---
Subjective Date of Service: 04/30/18 Interval History: HOSPITALIST PROGRESS NOTE Patient seen and examined at bedside. Care reviewed and d/w Katey Shelton RN. Pleasantly confused, eating lunch with her daughter assistance. Seen by Neurology earlier today and Aspirin started. This afternoon daughter was concerned patient's left leg was weaker. Family History: Unchanged from Admission Social History: Unchanged from Admission Past Medical History: Unchanged from Admission Objective Active Medications: Acetaminophen (Tylenol Tab*) 650 mg PO Q6H PRN PRN Reason: pain/fever Last Admin: 04/29/18 15:59 Dose: 650 mg Alprazolam (Xanax Tab*) 0.25 mg PO 1300 [facility] Last Admin: 04/30/18 14:40 Dose: 0.25 mg Alprazolam (Xanax Tab*) 0.5 mg PO BEDTIME [facility] Amlodipine Besylate (Norvasc Tab*) 2.5 mg PO DAILY [facility] Last Admin: 04/30/18 08:24 Dose: 2.5 mg Aspirin (Aspirin 81 Mg Chew Tab*) 81 mg PO DAILY [facility] Last Admin: 04/30/18 08:24 Dose: 81 mg Atorvastatin Calcium (Lipitor*) 40 mg PO QPM [facility] Last Admin: 04/30/18 17:40 Dose: 40 mg Hydralazine HCl (Apresoline Iv*) 5 mg IV SLOW PU Q6H PRN PRN Reason: SBP>180 and/or DBP>100 Last Admin: 04/29/18 15:59 Dose: 5 mg Prednisolone Acetate (Pred Forte 1%*) 1 drop LEFT EYE DAILY [facility] Last Admin: 04/30/18 10:11 Dose: 1 drop Vital Signs - 8 hr 04/30/18 04/30/18 04/30/18 10:33 11:37 14:40 Temperature 97.9 F 97.9 F Pulse Rate 73 73 Respiratory 18 17 17 Rate Blood Pressure 134/46 149/46 (mmHg) O2 Sat by Pulse 99 98 Oximetry 04/30/18 04/30/18 15:59 16:45 Temperature 98.5 F Pulse Rate 88 Respiratory 16 17 Rate Blood Pressure 129/84 (mmHg) O2 Sat by Pulse 96 Oximetry Oxygen Devices in Use Now: None Appearance: Elderly lady sitting up in a recliner in NAD. Ears/Nose/Mouth/Throat: Mucous Membranes Moist Neck: Trachea Midline Neurological: - - AAOx1 (self), PADRON Result Diagrams: 04/28/18 05:30 04/28/18 05:30 Assess/Plan/Problems-Billing Assessment: Mrs Neumann is an 87 year old female with PMH of hyperlipidemia, carotid disease , dementia, presented with acute right parietal stroke, status post tPA. - Patient Problems (1) CVA (cerebral vascular accident) Comment: - S/p tPA 04/26/18 with improvement of symptoms, but complicated by bleed. - Follow up CT head revealed evolving right parietal infarct with subtle linear hypodensities that may represent early petechial hemorrhage. - MRI brain showed increased signal at the cortex of the right temporal and parietal lobes. There is scattered foci of increased signal on diffusion- weighted image at the right occipital lobe as well. On susceptibility weighted imaging there is absence of signal at the right temporal and parietal lobes consistent with intraparenchymal hemorrhage. - Follow up CT brain 04/29/18 is stable - Neuro resumed Aspirin earlier today. Daughter was concerned patient had more left leg weakness - repeat CT today is unchanged. Will check UA as an UTI may exacerbate her deficits. - LDL is 74 - continue Atorvastatin. - Echo reviewed - bubble study is negative. 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 - Continue neuro checks q4h. (2) Type 2 diabetes mellitus Comment: - Patient meets criteria for diabetes with random glucose 221 and Hb A1c 7.1 - glucose her remained below 200 and daughter is not interested in further control. At 87yo with her comorbidities this is not unreasonable - d/c fingersticks and Lispro SS. (3) Dementia Comment: - Continue supportive care. (4) Hypertension Comment: - Controlled - continue low dose amlodipine and monitor. (5) Dyslipidemia Comment: - Continue Atorvastatin. (6) DVT prophylaxis Comment: - SCDs (7) DNR (do not resuscitate) (8) Palliative care encounter Comment: - Palliative care consult appreciated. Hospice referral as outpatient as family would prefer she's not back and forth to the hospital. Status and Disposition: Inpatient. Daughter updated at bedside. CM to assist with discharge plan - home with services vs [place] vs SNF.
[2018-04-30] MEDS ORDERED: ALPRAZolam TAB* 0.5 MG PO SCH (21:00)
--- NOTE | 2018-05-01 07:36 | PN ---
Subjective Date of Service: 05/01/18 Length of Stay: 5 Days Interval History: Overnight, the patient had 1 run of 4 beats of SVT, asymptomatic and overnight MD was notified. I did speak with the daughter yesterday afternoon who felt that the patient was weaker, was turning her left foot out more and having trouble seeing on the left side. I spoke with PT who confirmed weakness in the left leg with difficulty ambulating and I observed her walking as well, it did appear worse. I repeated a head CT given the fact that we had started ASA that morning with a history of petechial hemorrhage after tPA. CT was stable. Patient remains pleasantly confused. Stable otherwise overnight. No new issues. She denies any complaints this am. CT: Subacute R temp lobe infarct with gyriform/petechial hemorrhage, stable from prior. Family History: Unchanged from Admission Social History: Unchanged from Admission Past Medical History: Unchanged from Admission Objective Active Medications: Acetaminophen (Tylenol Tab*) 650 mg PO Q6H PRN PRN Reason: pain/fever Last Admin: 04/29/18 15:59 Dose: 650 mg Alprazolam (Xanax Tab*) 0.25 mg PO 1300 [facility] Last Admin: 04/30/18 14:40 Dose: 0.25 mg Alprazolam (Xanax Tab*) 0.5 mg PO BEDTIME JOSE Last Admin: 04/30/18 20:46 Dose: 0.5 mg Amlodipine Besylate (Norvasc Tab*) 2.5 mg PO DAILY [facility] Last Admin: 04/30/18 08:24 Dose: 2.5 mg Aspirin (Aspirin 81 Mg Chew Tab*) 81 mg PO DAILY [facility] Last Admin: 04/30/18 08:24 Dose: 81 mg Atorvastatin Calcium (Lipitor*) 40 mg PO QPM [facility] Last Admin: 04/30/18 17:40 Dose: 40 mg Hydralazine HCl (Apresoline Iv*) 5 mg IV SLOW PU Q6H PRN PRN Reason: SBP>180 and/or DBP>100 Last Admin: 04/29/18 15:59 Dose: 5 mg Prednisolone Acetate (Pred Forte 1%*) 1 drop LEFT EYE DAILY [facility] Last Admin: 04/30/18 10:11 Dose: 1 drop Vital Signs 04/30/18 04/30/18 04/30/18 08:00 10:33 11:37 Temperature 97.9 F 97.9 F Pulse Rate 73 73 Respiratory 17 18 17 Rate Blood Pressure 134/46 149/46 (mmHg) O2 Sat by Pulse 99 98 Oximetry 04/30/18 04/30/18 04/30/18 14:40 15:59 16:45 Temperature 98.5 F Pulse Rate 88 Respiratory 17 16 17 Rate Blood Pressure 129/84 (mmHg) O2 Sat by Pulse 96 Oximetry 04/30/18 04/30/18 05/01/18 20:00 20:46 02:27 Temperature Pulse Rate Respiratory 16 16 16 Rate Blood Pressure (mmHg) O2 Sat by Pulse Oximetry Intake and Output Last 24 Hours 04/29/18 04/30/18 05/01/18 05/02/18 06:59 06:59 06:59 06:59 Intake Total 1151 460 240 Output Total 780 450 100 Balance 371 10 140 Weight 127 lb 6.835 oz Intake: IV Fluids 446 NS (0.9%) 446 Oral 705 460 240 Output: Urine 780 375 100 [place] 75 Other: Estimated Void Medium # Voids 2 Oxygen Devices in Use Now: None Neurology Exam: General: HEENT: Normocephalic/atraumatic, sclera anicteric, mucous membranes moist Neck: Supple Chest: Clear to auscultation bilaterally Cardiovascular: Regular rate and rhythm without murmurs Abdomen: Soft, nontender/nondistended Extremities: No clubbing, cyanosis, or edema Neurological Findings: Sleeping but awakens, no acute distress. Wants to go back to sleep and refuses neuro exam. Speech: She does answer but at times not appropriately. No significant dysarthria Cranial Nerve: She forcefully closes eyes and will not open for exam. Mild left lower facial droop. VF are difficult to assess, may have some left sided vision loss, tongue is midline. Motor: She is moving all extremities but continues to have weakness this am in the left leg >> left arm. Will give resistance but refuses to comply with exam. Sensation: grossly intact to LT and w/d to pain X 4 with grimacing Deep Tendon Reflex: Could not assess at this time No resting or action tremor Gait: Would not get up to evaluate. Result Diagrams: 04/28/18 05:30 04/28/18 05:30 Microbiology and Other Data: Microbiology 04/27/18 18:58 Urine Culture - Final Urine Assessment/Plan Assessment: 87 year old female with a history of hyperlipidemia, carotid disease, dementia, presented with acute right parietal/temp/occ stroke, status post tpa with some hemorrhagic conversion, has done relatively well since tPA with slow recovery but yesterday, seemed to be weaker in the left side with possible visual field deficits noted by family. She remains very difficult to exam as she sometimes refuses elements of the exam. 1. Continue ASA 81mg only, no DAPT. Her repeat CT yesterday afternoon done after it was noted that she could be weaker on exam showed no worsening bleeding or acute change. --I suspect that her stroke is evolving and her symptoms will continue to wax and wane. --UA pending: UTI could unmask and acutely worsen some of her stroke symptoms --Given the location of the stroke, a homonymous visual field cut on the left is reasonable but very difficult to assess. I do not think she would be able to do formal VF testing as an outpatient due to her dementia. 2. Continue PT, we can repeat CT with any major change in her status but I expect she will continue to wax and wane over time. 3. 1-4 beat run of V-tach, asymptomatic. --Continue Tele --Echo: bubble negative 4. Continue Statin 5. BP control: continue to titrate meds to normalize 6. Diabetes: Watch diet. Insulin as necessary. Will need to be followed closely by PCP 7. Diet. Evaluated by speech, continue to advance as tolerated 8. Carotid disease: this will need to be followed usp outpatient 9. Dementia: outpatient workup. No meds for now 10. SCDs for DVT prophylaxis 11. Discharge planning. Family wanting to go to [facility] and has concerns about ability to safely care for her at home. I plan to sign off today but remain available for any changes in her status. Please schedule a follow up with me in 12 weeks for further evaluation of her dementia and follow up to her stroke.
[2018-05-01] MEDS: Aspirin 81 mg CHEW TAB* 81 MG TAB.CHEW PO SCH ×2 (09:38→12:42)
[2018-05-01] MEDS: amLODIPine TAB* 5 MG PO SCH ×2 (09:38→12:42)
[2018-05-01] MEDS: prednisoLONE 1% OPHTH.SUSP* 5 ML OPHTH.SUSP LEFT EYE SCH (09:40)
[2018-05-01 12:52] LABS: Urine Appearance Clear; Urine Bilirubin Negative (Negative); Urine Blood Negative (Negative); Urine Color Yellow; Urine Glucose Negative (Negative); Urine Ketones Negative (Negative); Urine Nitrite Negative (Negative); Urine Protein Negative (Negative); Urine Urobilinogen Positive (Negative)
[2018-05-01] MEDS: ALPRAZolam TAB* 0.25 MG PO SCH ×2 (15:13→16:30)
--- NOTE | 2018-05-01 15:18 | PN ---
Subjective Date of Service: 05/01/18 Interval History: HOSPITALIST PROGRESS NOTE Patient seen and examined at bedside. Care reviewed and d/w Katey Landa RN. Last night events and Dr. Saini's note appreciated. She's more lethargic today, did not talk to me. Family History: Unchanged from Admission Social History: Unchanged from Admission Past Medical History: Unchanged from Admission Objective Active Medications: Acetaminophen (Tylenol Tab*) 650 mg PO Q6H PRN PRN Reason: pain/fever Last Admin: 04/29/18 15:59 Dose: 650 mg Alprazolam (Xanax Tab*) 0.25 mg PO 1300 JOSE Alprazolam (Xanax Tab*) 0.5 mg PO BEDTIME JOSE Amlodipine Besylate (Norvasc Tab*) 2.5 mg PO DAILY [facility] Last Admin: 05/01/18 12:42 Dose: Not Given Aspirin (Aspirin 81 Mg Chew Tab*) 81 mg PO DAILY [facility] Last Admin: 05/01/18 12:42 Dose: Not Given Atorvastatin Calcium (Lipitor*) 40 mg PO QPM [facility] Last Admin: 04/30/18 17:40 Dose: 40 mg Hydralazine HCl (Apresoline Iv*) 5 mg IV SLOW PU Q6H PRN PRN Reason: SBP>180 and/or DBP>100 Last Admin: 04/29/18 15:59 Dose: 5 mg Prednisolone Acetate (Pred Forte 1%*) 1 drop LEFT EYE DAILY [facility] Last Admin: 05/01/18 09:40 Dose: 1 drop Vital Signs - 8 hr 05/01/18 05/01/18 08:00 08:01 Temperature 97.7 F Pulse Rate 62 Respiratory 17 20 Rate Blood Pressure 151/52 (mmHg) O2 Sat by Pulse 93 Oximetry Oxygen Devices in Use Now: None Appearance: Elderly lady lying in bed in NAD. Eyes: PERRLA Ears/Nose/Mouth/Throat: Mucous Membranes Moist Neck: Trachea Midline Respiratory: Symmetrical Chest Expansion and Respiratory Effort, Clear to Auscultation Cardiovascular: RRR - Normal S1 and S2 Neurological: - - Lethargic, opens eyes when touched, but swats examiner away. Doesn't follow commands, moves all 4 ext, but unable to test strength Result Diagrams: 04/28/18 05:30 04/28/18 05:30 Assess/Plan/Problems-Billing Assessment: Mrs Neumann is an 87 year old female with PMH of hyperlipidemia, carotid disease , dementia, presented with acute right parietal stroke, status post tPA. - Patient Problems (1) CVA (cerebral vascular accident) Comment: - S/p tPA 04/26/18 with improvement of symptoms, but complicated by bleed. - Follow up CT head revealed evolving right parietal infarct with subtle linear hypodensities that may represent early petechial hemorrhage. - MRI brain showed increased signal at the cortex of the right temporal and parietal lobes. There is scattered foci of increased signal on diffusion- weighted image at the right occipital lobe as well. On susceptibility weighted imaging there is absence of signal at the right temporal and parietal lobes consistent with intraparenchymal hemorrhage. - Follow up CT brain 04/29/18 is stable - Neuro resumed Aspirin earlier today. Daughter was concerned patient had more left leg weakness - repeat CT remains unchanged. - UA is negative. - LDL is 74 - continue Atorvastatin. - Echo reviewed - bubble study is negative. 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 - Her lethargy today could be secondary to Xanax resumed yesterday for her anxiety - will hold Xanax in case of sedation. (2) Type 2 diabetes mellitus Comment: - Patient meets criteria for diabetes with random glucose 221 and Hb A1c 7.1 - glucose her remained below 200 and daughter is not interested in further control. At 87yo with her comorbidities this is not unreasonable - d/c fingersticks and Lispro SS. (3) Dementia Comment: - Continue supportive care. (4) Hypertension Comment: - Controlled - continue low dose amlodipine and monitor. (5) Dyslipidemia Comment: - Continue Atorvastatin. (6) DVT prophylaxis Comment: - SCDs (7) DNR (do not resuscitate) (8) Palliative care encounter Comment: - Palliative care consult appreciated. Hospice referral as outpatient as family would prefer she's not back and forth to the hospital. Status and Disposition: Inpatient. Daughter updated at bedside. Family was interested in placement at [facility], but she may require [facility] at this time. CM aware.
[2018-05-01] MEDS: Atorvastatin* 40 MG TAB PO SCH (16:31)
[2018-05-01] MEDS ORDERED: ALPRAZolam TAB* 0.5 MG PO SCH (21:00)
[2018-05-02 06:01] LABS: ABS Basophils 0.1 10^3/ul (0-0.2); ABS Eosinophils 0.1 10^3/ul (0-0.6); ABS Lymphocytes 1.7 10^3/ul (1.0-4.8); ABS Monocytes 0.8 10^3/ul (0-0.8); ABS Neutrophils 6.7 10^3/ul (1.5-7.7); ABS Nucleated RBC 0 10^3/ul; Eosinophil % 1.3 %; Hematocrit 42 % (35-47); Hemoglobin 13.7 g/dl (12.0-16.0); Lymphocyte % 18.1 %; Mean Corpuscular HGB Conc 33 g/dl (31-36); Mean Corpuscular Hemoglobin 28 pg (27-31); Mean Corpuscular Volume 85 fL (80-97); Mean Platelet Volume 9.9 fL (7.4-10.4); Nucleated Red Blood Cells % 0; Platelet Count 238 10^3/ul (150-450); Red Blood Count 4.93 10^6/ul (4.00-5.40); Red Cell Distribution Width 15 % (10.5-15); White Blood Count 9.4 10^3/ul (3.5-10.8)
[2018-05-02 06:19] LABS: BUN/Creatinine Ratio 19.1 (8-20); Calcium 8.7 mg/dL (8.6-10.3); EGFR African American 72.3 (>60); EGFR Non-African American 59.7 (>60); Potassium 3.2 mmol/L (3.5-5.0)
[2018-05-02 07:35] VITALS: BP 131/68
[2018-05-02 08:03] LABS: Magnesium 1.7 mg/dL (1.9-2.7)
[2018-05-02] MEDS: amLODIPine TAB* 5 MG PO SCH (09:24)
[2018-05-02] MEDS: Potassium Chloride LIQUID* 20 MEQ PACKET PO SCH ×3 (09:24→12:08)
[2018-05-02] MEDS: Aspirin 81 mg CHEW TAB* 81 MG TAB.CHEW PO SCH (09:24)
[2018-05-02] MEDS: prednisoLONE 1% OPHTH.SUSP* 5 ML OPHTH.SUSP LEFT EYE SCH (09:28)
[2018-05-02] MEDS ORDERED: Magnesium Sulfate 2 GM IV* 2 GM/50 ML BAG IVPB ONE (11:17)
[2018-05-02] MEDS ORDERED: Potassium Chlor TAB* 20 MEQ TAB.ER PO ONE (12:20)
[2018-05-02] MEDS: ALPRAZolam TAB* 0.25 MG PO SCH (13:11)
--- NOTE | 2018-05-02 14:19 | DS ---
CC: Dr. Barahona; Dr. Michaela [facility]; Dr. Brett Saini DISCHARGE SUMMARY: DATE OF ADMISSION: 04/26/18 DATE OF DISCHARGE: 05/02/18 PRIMARY CARE PROVIDER: Dr. Barahona. CONSULTING NEUROLOGIST: Dr. Brett Saini. DISCHARGE DIAGNOSES: 1. Ischemic cerebrovascular accident, status post tPA, complicated by petechial hemorrhage. 2. Bilateral carotid artery stenosis. 3. Nonsustained ventricular tachycardia. 4. Newly diagnosed type 2 diabetes. 5. Incidental finding of thyroid nodules. 6. Chronically occluded left subclavian artery. SECONDARY DIAGNOSES: 1. Hyperlipidemia. 2. Dementia. 3. Hypertension. MEDICATION LIST: 1. Acetaminophen 650 mg p.o. q.6 hours p.r.n. pain or fever. 2. Alprazolam 0.25 mg p.o. at 1 p.m. and 0.5 mg p.o. at bedtime, hold for signs of sedation. 3. Atorvastatin 40 mg p.o. at bedtime. 4. Prednisolone 1% ophthalmological suspension 1 drop to the left eye daily. New medications: 1. Amlodipine 2.5 mg p.o. daily. 2. Aspirin 81 mg p.o. daily. HOSPITAL COURSE: Ms. Neumann is an 87-year-old lady with a past medical history as stated above, who presented to the emergency room on 04/26/18 with altered mental status. The patient was getting patrick dy to go out with her daughter and she was just staring at the window and she was having a hard time moving around. EMS was summoned and the patient was noted to have left facial droop, left upper and lower extremity weakness, and upon arrival to the emergency room, a code harris was called. Her CT of t he head was negative and she received tPA. A CTA of the head and neck showed mildly stenotic bilateral internal carotid arteries in the intracra nial portion, but on CTA of the neck, she had 59% stenosis of the right ICA and 64% stenosis on the l eft. There was also incidental finding of thyroid nodules. The CTA of the neck also showed chronica lly occluded left subclavian artery with retrograde left vertebral artery filling via the right. The patient was admitted to the intensive care unit after tPA infusion. Transthoracic echocardiogram showed moderate concentric LVH with ejection fraction greater than 65%, no aortic stenosis, mild-to-m oderate mitral regurgitation. The bubble study was negative. The patient was seen in consultation by Neurology (Dr. Saini) and his recommendation was to continue t he post tPA protocol and to have a repeat CT scan of her head at [address] of the brain showed a developing region of hypodensity noted in the posterior right par ietal concerning for an evolving infarct. There are subtle linear hypodensities noted, which may rep resent early petechial hemorrhage. The patient continued to be monitored in the intensive care unit, and she underwent an MRI of the brain without contrast that showed findings consistent with acute to subacute multifocal stroke involving the right temporal and parietal lobes as well as smaller isolat ed infarctions at the right occipital lobe. On susceptibility- weighted imaging, there is absence of signal at the right temporal and parietal lobe consistent with intraparenchymal hemorrhage. The pre sence of hemorrhage can be confirmed with a noncontrast CT of the brain. Another CT of the brain was performed 24 hours later and her changes were stable, once again with findings consistent with petec hial hemorrhage in the setting of cortical laminar necrosis. At that point, the patient was transferr ed to the telemetry floor where she has stayed in stable condition. She had 1 episode of 4 beats of V-tach, asymptomatic with no other significant arrhythmias. Dr. Saini recommended addition of aspirin and the patient's neurological deficits waxed and waned, so there wa s concern that she could have worsening of her bleed, so another CT of the brain was performed and on ce again confirmed instability. Urinary tract infection was also ruled out. The patient's family is very realistic and conservative in terms of treatment. The patient does meet criteria for diabetes at this time with a random glucose greater than 200 and an A1c of 7.1, but the y state that she is 87 and one of her few pleasures is to eat, so they would not want to pursue any t reatment for her diabetes, so fingersticks were discontinued and her diet has been liberalized. She was seen in consultation by Palliative Care (Dr. Sharma) and she also spoke to the family and the greta sutherland's MOLST form was updated to reflect her wishes of being a do not resuscitate. The family also w ould not want to keep bringing the patient back and forth to the hospital. We had a family meeting a nd decision is the patient will be discharged to [facility] for rehab as her already reside s there and if she survives, the plan is to eventually discharge her to assisted living (the family w nicol prefer [place]). If the patient has worsening of her condition or does not make progress with rehab in 4 weeks, the plan would be to consider referral to hospice as they feel that her quality of life has been just declining. The patient has PT and OT needs at this time and she was offered a bed for rehabilitation at [facility]. She is medically stable for discharge at this time. PHYSICAL EXAMINATION: Vital Signs: Temperature 98.2, heart rate is 78, respiratory rate is 16, oxyg en saturation 97% on room air, blood pressure is 131/68. General: The patient is a pleasantly confu sed, elderly lady, sitting up in a recliner, in no acute distress. HEENT: Pupils are equal. CVS: Normal S1, S2. Regular rate and rhythm. Chest: Breath sounds bilaterally with no added sounds. A bdomen is soft. Bowel sounds present. Neuro: She is alert, awake, and oriented x2 (self and place) . She can move all 4 extremities, but has left hemiparesis that waxes and wanes, also with homonymou s hemianopia on the left visual field. DIET: Regular diet. ACTIVITIES: Continue PT and OT as tolerated. DISPOSITION: To [facility]. STATUS WHILE IN THE HOSPITAL: Inpatient. CONDITION ON DISCHARGE: Stable. Please keep in mind that the patient's family is not interested in any further aggressive or invasive measures. So as described above, we are not going to pursue treatment for her diabetes and we are n ot going to investigate further the episode of V-tach that she had while on telemetry. The idea is t o keep interventions to minimum and if the patient does not survive in the next 4 weeks, the family w nicol be open to transition to hospice care. Please keep in mind that this is a summarized version of this patient's complex hospital stay. If yo u need more information, please feel free to call me at or please obtain full medical r ecords. This discharge summary will also serve as her history and physical upon her admission to [facility] . TIME SPENT: Approximately 50 minutes was spent to complete this discharge. [id number]/[facility] #: [id number]
== END 2018-05-02 18:00 | DRG 61 ==
LOC: ED 16:39 → ICU 22:19 → MEDTELE 04-29 14:11
PROVIDERS: ADMIT Internal Medicine; ATTEND Internal Medicine
DX: I63.9 Cerebral infarction, unspecified (principal); I61.8 Other nontraumatic intracerebral hemorrhage; G81.94 Hemiplegia, unspecified affecting left nondominant side; I47.1 Supraventricular tachycardia; R47.01 Aphasia; R29.810 Facial weakness; I34.0 Nonrheumatic mitral (valve) insufficiency; Z66 Do not resuscitate; R47.1 Dysarthria and anarthria; R13.10 Dysphagia, unspecified; F41.9 Anxiety disorder, unspecified; I65.23 Occlusion and stenosis of bilateral carotid arteries; F32.9 Major depressive disorder, single episode, unspecified; I70.8 Atherosclerosis of other arteries; E78.5 Hyperlipidemia, unspecified; I10 Essential (primary) hypertension; R23.3 Spontaneous ecchymoses; E11.9 Type 2 diabetes mellitus without complications; E04.2 Nontoxic multinodular goiter; R41.0 Disorientation, unspecified; R41.89 Other symptoms and signs involving cognitive functions and awareness; F03.90 Unspecified dementia, unspecified severity, without behavioral disturbance, psychotic disturbance, mood disturbance, and anxiety; R29.818 Other symptoms and signs involving the nervous system; Z88.8 Allergy status to other drugs, medicaments and biological substances; Z88.5 Allergy status to narcotic agent; Z86.73 Personal history of transient ischemic attack (TIA), and cerebral infarction without residual deficits; Z96.89 Presence of other specified functional implants; Z87.891 Personal history of nicotine dependence; R40.2412 Glasgow coma scale score 13-15, at arrival to emergency department; Z80.9 Family history of malignant neoplasm, unspecified; Z79.82 Long term (current) use of aspirin; Z79.52 Long term (current) use of systemic steroids; Z94.7 Corneal transplant status; Z91.14 Patient's other noncompliance with medication regimen
CPT/HCPCS: 36415; 70450; 70496; 70498; 70551; 71045; 80048; 80053; 80061; 81003; 81015; 83036; 83605; 83735; 84484; 85025; 85610; 85730; 86850; 86900; 86901; 87086; 93005; 93306; 93308; 99284; A9270-GY; G8978-GP-CJ; G8978-GP-CK; G8979-GP-CH; G8987-GO-CK; G8988-GO-CI; J0360; J2997; J3475; Q9967